=== PATIENT | female | born 1970 | race African-American/Black ===

== ENCOUNTER 2016-10-26 03:28 | Emergency (ER) | payer BC ==
[2016-10-26 05:20] VITALS: BP 134/80; PULSE 82; TEMP 98.7; BMI 26.9
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
== END 2016-10-26 06:23 | disposition home or self-care (01) ==
LOC: JER 03:28
DX: R51 Headache (principal); F31.9 Bipolar disorder, unspecified; K21.9 Gastro-esophageal reflux disease without esophagitis; J45.909 Unspecified asthma, uncomplicated
CPT/HCPCS: 84703; 99282-25

== ENCOUNTER 2018-08-21 14:37 | Emergency (ER) | payer OTHER ==
[2018-08-21 14:43] VITALS: BP 123/82; PULSE 83; TEMP 98.6; BMI 33.6
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
== END 2018-08-21 15:36 | disposition home or self-care (01) ==
LOC: JERFT 14:37
DX: J06.9 Acute upper respiratory infection, unspecified (principal); J02.9 Acute pharyngitis, unspecified; J45.909 Unspecified asthma, uncomplicated; K21.9 Gastro-esophageal reflux disease without esophagitis
CPT/HCPCS: 87070; 87804; 87880; 99281-25

== ENCOUNTER 2018-08-24 13:20 | Emergency (ER) | payer OTHER ==
[2018-08-24 13:36] VITALS: BP 136/83; PULSE 84; TEMP 97.8; BMI 33.6
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
[2018-08-24] MEDS ORDERED: diazePAM 5 MG TABLET PO ONE (14:08)
[2018-08-24] MEDS ORDERED: KETOROLAC TROMETHAMINE 30 MG/1 ML VIAL IM ONE (14:08)
[2018-08-24] MEDS ORDERED: KETOROLAC TROMETHAMINE 30 MG/1 ML VIAL ONE (14:10)
[2018-08-24] MEDS ORDERED: diazePAM 5 MG TABLET ONE (14:11)
== END 2018-08-24 15:11 | disposition home or self-care (01) ==
LOC: JERFT 13:20
PROC: 3E0233Z Introduction of Anti-inflammatory into Muscle, Percutaneous Approach (ICD-10-PCS; principal; 2018-08-24)
DX: M54.31 Sciatica, right side (principal); F17.210 Nicotine dependence, cigarettes, uncomplicated; F32.9 Major depressive disorder, single episode, unspecified; J45.909 Unspecified asthma, uncomplicated
CPT/HCPCS: 99281-25

== ENCOUNTER 2018-12-28 20:20 | Inpatient (IN) | payer OTHER ==
--- NOTE | 2018-12-28 20:34 | PDOC ---
Rapid Medical Evaluation Time Seen by Provider: 12/28/18 20:33 Medical Evaluation: Allergies Allergy/AdvReac Type Severity Reaction Status Date / Time metronidazole [From Flagyl] Allergy Mild Hives Verified 08/24/18 13:33 Metronidazole HCl Allergy Mild Hives Verified 08/24/18 13:33 [From Flagyl] latex Allergy Verified 08/24/18 13:33 Sulfa (Sulfonamide Allergy Rash, Verified 08/24/18 13:33 Antibiotics) ITCHY MOUTH 12/28/18 20:33 HPI: vomiting x4 today yellow in color PE: No acute distress ORDERS: Belly labs
--- NOTE | 2018-12-28 21:40 | PDOC ---
History of Present Illness - General Chief Complaint: Pain Stated Complaint: STOMACE PAIN Time Seen by Provider: 12/28/18 20:33 - History of Present Illness Initial Comments: 12/29/18 00:25 The patient is a 48 year old female with a history of Crohn's, GERD, UTIs, Anemia who presents for evaluation of abdominal pain, nausea, and vomiting. The patient reports a 1 day history of diffuse crampy abdominal pain with associated nausea and 6 episodes of non-bilious, non-bloody vomiting prompting her presentation to the ED for further evaluation. She notes frequent belching , but otherwise denies fevers, chills, SOB, chest pain, or changes with urination or bowel movements. She notes that her last bowel movement was 1 day ago as well. Past History - Past Medical History Allergies/Adverse Reactions: Allergies Allergy/AdvReac Type Severity Reaction Status Date / Time metronidazole [From Flagyl] Allergy Mild Hives Verified 08/24/18 13:33 Metronidazole HCl Allergy Mild Hives Verified 08/24/18 13:33 [From Flagyl] latex Allergy Verified 08/24/18 13:33 Sulfa (Sulfonamide Allergy Rash, Verified 08/24/18 13:33 Antibiotics) ITCHY MOUTH Home Medications: Ambulatory Orders Adalimumab [Humira] 40 mg SQ ASDIR 05/09/15 Omeprazole 40 mg PO DAILY 05/09/15 Mirtazapine [Remeron -] 15 mg PO DAILY 06/13/15 Albuterol Sulfate Inhaler - [Ventolin Hfa Inhaler -] 1 - 2 inh PO Q4H PRN Amoxicillin/Potassium Clav [Augmentin 875-125 Tablet] 1 each PO BID 7 Days #14 tablet 08/21/18 Benzonatate [Tessalon Pearls -] 100 mg PO TID PRN #21 capsule 08/21/18 Ipratropium [place] 2 spray NS BID PRN #1 spray 08/21/18 Cyclobenzaprine HCl [Flexeril -] 10 mg PO TID PRN #10 tablet 08/24/18 Ketorolac Tromethamine [Toradol] 10 mg PO TID PRN #10 tablet 08/24/18 Anemia: Yes Asthma: Yes Cancer: No Cardiac Disorders: No CVA: No COPD: No CHF: No Dementia: No Diabetes: No GI Disorders: Yes (ACID REFLUX, CROHNS) Disorders: Yes (H/O UTI'S) HTN: No Hypercholesterolemia: No Liver Disease: No Psychiatric Problems: Yes (depression) Seizures: No Thyroid Disease: No - Surgical History Abdominal Surgery: Yes Appendectomy: No Cardiac Surgery: No Cholecystectomy: Yes Lung Surgery: No Neurologic Surgery: No Orthopedic Surgery: Yes (R RTC, L RTC TIMES TWO) - Immunization History Immunization Up to Date: No - Suicide/Smoking/Psychosocial Hx Smoking Status: Yes Smoking History: Current every day smoker Have you smoked in the past 12 months: No Number of Cigarettes Smoked Daily: 4 Information on smoking cessation initiated: No 'Breaking Loose' booklet given: 04/18/16 Hx Alcohol Use: No Drug/Substance Use Hx: No Substance Use Type: None Hx Substance Use Treatment: Yes (1996) Review of Systems - Review of Systems Comments:: 12/29/18 00:27 Constitutional: No fevers, chills, fatigue, malaise HEENT: No Rhinorrhea, nasal congestion, visual changes Cardiovascular: No chest pain, syncope, palpitations, lightheadedness Respiratory: No Cough, SOB, Hemoptysis, Gastrointestinal: Abdominal pain, Nausea, Vomiting, No Constipation, Diarrhea, Melena Genitourinary: No Dysuria, Frequency, Urgency, Hesitancy, Hematuria, Flank pain Musculoskeletal: No Myalgia, arthralgia Skin: No rashes, itching, bruising, pallor Neurologic: No Headache, Dizziness, Numbness, Weakness, or Tingling Psychiatric: No Hallucinations. No SI or HI *Physical Exam - Vital Signs Last Vital Signs Temp Pulse Resp BP Pulse Ox 98.9 F 97 H 18 159/103 H 99 12/28/18 20:39 12/28/18 20:39 12/28/18 20:39 12/28/18 20:39 12/28/18 20:39 - Physical Exam Comments: 12/29/18 00:27 General Appearance: Nourished. No Apparent Distress HEENT: No Pharyngeal Erythema, Tonsillar Exudate, Tonsillar Erythema Neck: No Cervical Lymphadenopathy Respiratory/Chest: Lungs Clear, Normal Breath Sounds. No Crackles, Rales, Rhonchi, Wheezing Cardiovascular: Regular Rhythm, Regular Rate. No Murmur, Gallops, Rubs Gastrointestinal/Abdominal: Normal Bowel Sounds, Soft. Diffuse discomfort with palpation on exam. No Guarding, Rebound, Musculoskeletal: No CVA Tenderness Extremity: Normal Capillary Refill Integumentary: Normal Color, Dry, Warm Neurologic: Fully Oriented, Alert, Normal Mood/Affect, Normal Response, ED Treatment Course - LABORATORY CBC & Chemistry Diagram: 12/28/18 21:25 12/28/18 21:25 Medical Decision Making - Medical Decision Making 12/29/18 00:28 The patient is a 48 year old female with a history of Crohn's, GERD, UTIs, Anemia who presents for evaluation of abdominal pain, nausea, and vomiting. Differential includes but is not limited to: Gastritis, Crohn's flair, Infectious, Metabolic Derangement. Given the patient's history and physical exam , we will obtain a cbc, cmp, troponin, lipase, ua, ekg, CT abdomen/pelvis to evaluate further. We will treat with iv fluids pepcid, zofran and morphine and continue to monitor and reassess while here in the ED. 12/29/18 04:32 CBC demonstrates an elevated wbc to 13. CMP, troponin, lipase, ua are unremarkable. CT abdomen/pelvis demonstrates an acute crohn's flare with possible partial or early SBO as preliminarily read by our funeral location manager radiologist. We have placed an NG tube for management. The patient will require admission for further management. We discussed the case with Dr. Clay who accepted the patient for admission. *DC/Admit/Observation/Transfer Diagnosis at time of Disposition: SBO (small bowel obstruction) Crohn's colitis Qualifiers: Digestive disease complication type: unspecified complication Qualified Code(s) : K50.119 - Crohn's disease of large intestine with unspecified complications - Discharge Dispostion Condition at time of disposition: Stable Decision to Admit order: Yes - Referrals - Patient Instructions - Post Discharge Activity
[2018-12-28 21:44] LABS: HEMOGLOBIN 14.1 GM/dL (10.7-15.3); RBC 4.45 M/mm3 (3.60-5.2); WHITE BLOOD COUNT 13.9 K/mm3 (4.0-10.0)
[2018-12-28 21:45] LABS: BASO % 1.1 % (0-2.0); EOS % 1.9 % (0-4.5); LYMPH % 22.4 % (8-40); MCH 31.6 pg (25.7-33.7); MCHC 33.5 g/dl (32.0-36.0); MEAN CELL VOLUME 94.3 fl (80-96); MEAN PLT VOLUME 7.8 fl (7.5-11.1); MONO % 8.3 % (3.8-10.2); NEUT % 66.3 % (42.8-82.8); PLATELET COUNT 413 K/MM3 (134-434); RDW 14.1 % (11.6-15.6)
[2018-12-28] MEDS ORDERED: FAMOTIDINE 20 MG/50 ML IVPB 20 MG/50 ML MG IVPB ONE ×2 (21:48→22:14)
[2018-12-28] MEDS ORDERED: ONDANSETRON 4 MG/2 ML VIAL IVPUSH ONE (21:48)
[2018-12-28] MEDS ORDERED: SODIUM CHLORIDE 1,000 ML IV STA (21:48)
[2018-12-28] MEDS ORDERED: ONDANSETRON 4 MG/2 ML VIAL ONE (21:51)
[2018-12-28 22:11] LABS: ALBUMIN 3.6 g/dl (3.4-5.0); ALK PHOS 116 U/L (45-117); ANION GAP 6 MMOL/L (8-16); BILIRUBIN,TOTAL 0.3 mg/dL (0.2-1); BLOOD UREA NITROGEN 5 mg/dL (7-18); CHLORIDE 106 mmol/L (98-107); CO2 27 mmol/L (21-32); CREATININE 0.6 mg/dL (0.55-1.3); GLUCOSE,RANDOM 95 mg/dL (74-106); LIPASE 69 U/L (73-393); POTASSIUM 3.9 mmol/L (3.5-5.1); SGOT/AST 18 U/L (15-37); SGPT/ALT 28 U/L (13-61); SODIUM 138 mmol/L (136-145); TOT PROT 7.4 g/dl (6.4-8.2)
[2018-12-28 22:25] LABS: URINE APPEARANCE CLEAR; URINE BILIRUBIN NEGATIVE (NEGATIVE); URINE COLOR YELLOW; URINE GLUCOSE (UA) NEGATIVE (NEGATIVE); URINE KETONE NEGATIVE (NEGATIVE); URINE LEUK ESTERASE NEGATIVE (NEGATIVE); URINE NITRITE NEGATIVE (NEGATIVE); URINE PROTEIN NEGATIVE (NEGATIVE); URINE UROBILINOGEN 0.2 mg/dL (0.2-1.0)
--- NOTE | 2018-12-28 22:59 | PDOC ---
Documentation entered by Rolando Estrada SCRIBE, acting as scribe for Mariama Catalan DO. Mariama Catalan DO: This documentation has been prepared by the Sean singh Matthew, SCRIBE, under my direction and personally reviewed by me in its entirety. I confirm that the documentation accurately reflects all work, treatment, procedures, and medical decision making performed by me. Attending Attestation - Resident Resident Name: Franklyn Britt (Dr. Esparza) - ED Attending Attestation I have performed the following: I have examined & evaluated the patient, The case was reviewed & discussed with the resident, I agree w/resident's findings & plan - HPI HPI: 12/28/18 22:29 Patient is a 48 year old female with a significant past medical history of anemia, asthma, Crohn's disease, GERD, bipolar disorder, and depression who presents to the ED with complaints of epigastric pain that began yesterday. Patient reports experiencing sudden gradual increase of epigastric abdominal that she states began shortly after eating [place] food. She report waking up this morning with slight nausea, with associated vomiting x6 episodes and increased belching, prompting her to come into the ED for further evaluation. Denies chest pain, Sob. Denies nausea, vomiting. Denies fevers, chills. Denies constipation, diarrhea. Denies dysuria, hematuria. Denies contact with sick individuals, out of state travelling. Denies any other symptoms. Allergies: metronidazole, Metronidazole HCl ,latex, Sulfa Social history: No smoking. No alcohol. No illicit drugs. Surgical history: Cholecystectomy, R RTC, L RTC TIMES TWO PMD: Dr. Mandujano - Physicial Exam PE: 12/28/18 22:29 Agree with residents Physical Exam. - Medical Decision Making 12/28/18 22:57 48-year-old female with a history of Crohn's disease complaining of diffuse abdominal pain and vomiting Everybody repeat there is a leukocytosis and persistent vomiting despite anti- medics and antacids Plan for continued IV hydration CT scan of the abdomen and pelvis Patient will likely require admission as she is not tolerating by mouth
[2018-12-28] MEDS ORDERED: morphine CARPU-JECT 4 MG/1 ML DISP.SYRIN IVPUSH ONE (23:47)
[2018-12-29] MEDS ORDERED: SODIUM CHLORIDE 1,000 ML IV STA (04:26)
[2018-12-29] MEDS ORDERED: morphine CARPU-JECT 2 MG/1 ML DISP.SYRIN IVPUSH ONE (05:54)
[2018-12-29] MEDS ORDERED: ONDANSETRON 4 MG/2 ML VIAL IVPUSH PRN (09:34)
[2018-12-29] MEDS ORDERED: DEXTROSE 5%-0.45% SALINE 1,000 ML IV SCH (09:45)
[2018-12-29] MEDS: DEXTROSE 5%-0.45% SALINE 1,000 ML IV SCH (10:38)
[2018-12-29] MEDS: HEPARIN NA (PORCINE) 5,000 UNITS/ML 1ML VIAL SQ SCH ×2 (10:39→22:38)
--- NOTE | 2018-12-29 17:16 | EKG ---
Test Reason : Blood Pressure : / mmHG Vent. Rate : 095 BPM Atrial Rate : 095 BPM P-R Int : 168 ms QRS Dur : 082 ms QT Int : 366 ms P-R-T Axes : 046 060 048 degrees QTc Int : 459 ms POOR DATA QUALITY, INTERPRETATION MAY BE ADVERSELY AFFECTED NORMAL SINUS RHYTHM NORMAL ECG WHEN COMPARED WITH ECG OF 23-OCT-2015 17:40, NONSPECIFIC T WAVE ABNORMALITY NOW EVIDENT IN LATERAL LEADS Confirmed by JUSTINE MONTOYA, KING ([id number]) on 12/29/2018 5:16:30 PM Referred By: Confirmed By:KING FLETCHER MD
--- NOTE | 2018-12-29 19:24 | CONSULT ---
Consult Consult Specialty:: Surgery Reason for Consultation:: SBO, Crohn's disease - History of Present Illness Chief Complaint: abdominal pain History of Present Illness: Patient is a 48 year old female with a significant past medical history of anemia, asthma, Crohn's disease, GERD, bipolar disorder, and depression who presents to the ED with complaints of epigastric pain that began yesterday. Patient reports experiencing sudden gradual increase of epigastric abdominal that she states began shortly after eating [place]oh[place] food. She report waking up this morning with slight nausea, with associated vomiting x6 episodes and increased belching, prompting her to come into the ED for further evaluation. - Past Medical History ...LMP: 07/18/12 - Alcohol/Substance Use Hx Alcohol Use: No - Smoking History Smoking history: Current every day smoker Have you smoked in the past 12 months: No Aproximately how many cigarettes per day: 4 Home Medications - Allergies Allergies/Adverse Reactions: Allergies Allergy/AdvReac Type Severity Reaction Status Date / Time metronidazole [From Flagyl] Allergy Mild Hives Verified 08/24/18 13:33 Metronidazole HCl Allergy Mild Hives Verified 08/24/18 13:33 [From Flagyl] latex Allergy Verified 08/24/18 13:33 Sulfa (Sulfonamide Allergy Rash, Verified 08/24/18 13:33 Antibiotics) ITCHY MOUTH - Home Medications Home Medications: Ambulatory Orders Adalimumab [Humira] 40 mg SQ ASDIR 05/09/15 Omeprazole 40 mg PO DAILY 05/09/15 Mirtazapine [Remeron -] 15 mg PO DAILY 06/13/15 Albuterol Sulfate Inhaler - [Ventolin Hfa Inhaler -] 1 - 2 inh PO Q4H PRN Amoxicillin/Potassium Clav [Augmentin 875-125 Tablet] 1 each PO BID 7 Days #14 tablet 08/21/18 Benzonatate [Tessalon Pearls -] 100 mg PO TID PRN #21 capsule 08/21/18 Ipratropium [place] 2 spray NS BID PRN #1 spray 08/21/18 Cyclobenzaprine HCl [Flexeril -] 10 mg PO TID PRN #10 tablet 08/24/18 Ketorolac Tromethamine [Toradol] 10 mg PO TID PRN #10 tablet 08/24/18 Physical Exam Vital Signs: Vital Signs Temperature 99.9 F H 12/29/18 18:43 Pulse Rate 85 12/29/18 18:43 Respiratory Rate 20 12/29/18 18:43 Blood Pressure 135/80 12/29/18 18:43 O2 Sat by Pulse Oximetry (%) 95 12/29/18 09:00 Labs: CBC, BMP 12/28/18 21:25 12/28/18 21:25 Imaging - Results Cat Scan: Report Reviewed, Image Reviewed Problem List - Problems (1) SBO (small bowel obstruction) Code(s): K56.609 - UNSP INTESTNL OBST, UNSP TO PARTIAL VERSUS COMPLETE OBST (2) Abdominal pain Code(s): R10.9 - UNSPECIFIED ABDOMINAL PAIN
[2018-12-29 22:25] VITALS: BMI 34.5
--- NOTE | 2018-12-29 23:08 | HP ---
Admitting History and Physical - Admission History of Present Illness: The patient is a 48 year old female with a history of Crohn's, GERD, UTIs, Anemia who presents for evaluation of abdominal pain, nausea, and vomiting. The patient reports a 1 day history of diffuse crampy abdominal pain with associated nausea and 6 episodes of non-bilious, non-bloody vomiting prompting her presentation to the ED for further evaluation. She notes frequent belching , but otherwise denies fevers, chills, SOB, chest pain, or changes with urination or bowel movements. She notes that her last bowel movement was 1 day ago as well. - Past Medical History Gastrointestinal: Yes: Crohn's Disease, GERD ...LMP: 07/18/12 Heme/Onc: Yes: Anemia - Past Surgical History Past Surgical History: Yes: None - Smoking History Smoking history: Current every day smoker Have you smoked in the past 12 months: No Aproximately how many cigarettes per day: 4 - Alcohol/Substance Use Hx Alcohol Use: No Home Medications - Allergies Allergies/Adverse Reactions: Allergies Allergy/AdvReac Type Severity Reaction Status Date / Time metronidazole [From Flagyl] Allergy Mild Hives Verified 08/24/18 13:33 Metronidazole HCl Allergy Mild Hives Verified 08/24/18 13:33 [From Flagyl] shellfish derived Allergy Unknown Unverified 12/30/18 17:03 latex Allergy Verified 08/24/18 13:33 pepper (genus Capsicum) Allergy Verified 12/30/18 17:01 Sulfa (Sulfonamide Allergy Rash, Verified 08/24/18 13:33 Antibiotics) ITCHY MOUTH - Home Medications Home Medications: Ambulatory Orders Adalimumab [Humira] 40 mg SQ ASDIR 05/09/15 Omeprazole 40 mg PO DAILY 05/09/15 Mirtazapine [Remeron -] 15 mg PO DAILY 06/13/15 Albuterol Sulfate Inhaler - [Ventolin HFA Inhaler -] 1 - 2 inh PO Q4H PRN Ipratropium [place] 2 spray NS BID PRN #1 spray 08/21/18 Cyclobenzaprine HCl [Flexeril -] 10 mg PO TID PRN #10 tablet 08/24/18 Levofloxacin [Levaquin] 500 mg PO DAILY #7 tablet 12/31/18 Family Disease History - Family Disease History Family History: Unremarkable Review of Systems - Review of Systems Constitutional: reports: Loss of Appetite, Weakness Neck: reports: No Symptoms Cardiovascular: reports: No Symptoms Respiratory: reports: No Symptoms Genitourinary: reports: No Symptoms Physical Examination Vital Signs: Vital Signs Temperature 98.6 F 12/29/18 20:30 Pulse Rate 83 12/29/18 20:30 Respiratory Rate 18 12/29/18 20:30 Blood Pressure 160/92 12/29/18 20:30 O2 Sat by Pulse Oximetry (%) 95 12/29/18 09:00 Constitutional: Yes: Well Nourished HENT: Yes: Other ((+) NGT inserted) Neck: Yes: WNL, Supple Cardiovascular: Yes: WNL, Regular Rate and Rhythm Respiratory: Yes: WNL, Regular, CTA Bilaterally Gastrointestinal: Yes: Normal Bowel Sounds, Soft, Distention Musculoskeletal: Yes: WNL Extremities: Yes: WNL Edema: No Neurological: Yes: WNL, Alert, Oriented ...Motor Strength: WNL Labs: CBC, BMP 12/28/18 21:25 12/28/18 21:25 Problem List - Problems (1) Abdominal pain Assessment/Plan: ?partial SBO vs Crohn's exacerbation NGT as per surgery GI/Surgical consults noted COnt IVF Cont IV antibxs Code(s): R10.9 - UNSPECIFIED ABDOMINAL PAIN (2) Anemia Assessment/Plan: Monitor H/H Due to chronic dz Code(s): D64.9 - ANEMIA, UNSPECIFIED
[2018-12-30 06:46] LABS: BASO % 0.6 % (0-2.0); EOS % 3.8 % (0-4.5); HEMATOCRIT 37.3 % (32.4-45.2); HEMOGLOBIN 12.3 GM/dL (10.7-15.3); MCH 31.3 pg (25.7-33.7); MEAN CELL VOLUME 94.7 fl (80-96); MONO % 9.7 % (3.8-10.2); NEUT % 54.9 % (42.8-82.8); PLATELET COUNT 422 K/MM3 (134-434); RBC 3.94 M/mm3 (3.60-5.2); RDW 14.1 % (11.6-15.6); WHITE BLOOD COUNT 12.5 K/mm3 (4.0-10.0)
[2018-12-30 07:27] LABS: BILIRUBIN,TOTAL 0.5 mg/dL (0.2-1); CALCIUM 8.3 mg/dL (8.5-10.1); CREATININE 0.6 mg/dL (0.55-1.3); POTASSIUM 3.4 mmol/L (3.5-5.1); TOT PROT 6.2 g/dl (6.4-8.2)
--- NOTE | 2018-12-30 08:08 | CON.GI ---
Consult Consult Specialty:: GI Referred by:: Dr. Ingrid Clay Reason for Consultation:: Epigastric pain with nausea and vomiting - History of Present Illness History of Present Illness: Patient is a 48 y/o female with history of Crohn's disease and GERD. Patient states experiencing sharp/cramping diffuse abdominal pain accompanied with nausea and non-bloody vomitus. Patient states the symptoms started Wednesday after eating [place] food Wednesday night. Abdominal pain was exacerbated after eating or drinking, there were no relieving factors. Abdomen/Pelvic CT scan shows findings consistent with Crohn's disease, thickening and irregularity of terminal ileum, areas of focal dilation involving ileal loops with associated inflammatory changes within adjacent mesenteric fat. NGT was placed and confirmed with xray, however on examination no NGT noted. - History Source History Provided By: Patient Limitations to Obtaining History: No Limitations - Past Medical History Pulmonary: Yes: Asthma Gastrointestinal: Yes: Crohn's Disease, GERD ...LMP: 07/18/12 Heme/Onc: Yes: Anemia - Past Surgical History Past Surgical History: Yes: Cholecystectomy, Hysterectomy - Alcohol/Substance Use Hx Alcohol Use: No - Smoking History Smoking history: Current every day smoker Have you smoked in the past 12 months: No Aproximately how many cigarettes per day: 4 - Social History ADL: Independent History of Recent Travel: No Home Medications - Allergies Allergies/Adverse Reactions: Allergies Allergy/AdvReac Type Severity Reaction Status Date / Time metronidazole [From Flagyl] Allergy Mild Hives Verified 08/24/18 13:33 Metronidazole HCl Allergy Mild Hives Verified 08/24/18 13:33 [From Flagyl] latex Allergy Verified 08/24/18 13:33 Sulfa (Sulfonamide Allergy Rash, Verified 08/24/18 13:33 Antibiotics) ITCHY MOUTH - Home Medications Home Medications: Ambulatory Orders Adalimumab [Humira] 40 mg SQ ASDIR 05/09/15 Omeprazole 40 mg PO DAILY 05/09/15 Mirtazapine [Remeron -] 15 mg PO DAILY 06/13/15 Albuterol Sulfate Inhaler - [Ventolin Hfa Inhaler -] 1 - 2 inh PO Q4H PRN Amoxicillin/Potassium Clav [Augmentin 875-125 Tablet] 1 each PO BID 7 Days #14 tablet 08/21/18 Benzonatate [Tessalon Pearls -] 100 mg PO TID PRN #21 capsule 08/21/18 Ipratropium [place] 2 spray NS BID PRN #1 spray 08/21/18 Cyclobenzaprine HCl [Flexeril -] 10 mg PO TID PRN #10 tablet 08/24/18 Ketorolac Tromethamine [Toradol] 10 mg PO TID PRN #10 tablet 08/24/18 Review of Systems - Review of Systems Constitutional: reports: No Symptoms Eyes: reports: No Symptoms HENT: reports: No Symptoms Neck: reports: No Symptoms Cardiovascular: reports: No Symptoms Respiratory: reports: No Symptoms Gastrointestinal: reports: Abdominal Pain, Constipation, Nausea, Vomiting Genitourinary: reports: No Symptoms Breasts: reports: No Symptoms Reported Musculoskeletal: reports: No Symptoms Integumentary: reports: No Symptoms Neurological: reports: No Symptoms Endocrine: reports: No Symptoms Hematology/Lymphatic: reports: No Symptoms Psychiatric: reports: No Symptoms Physical Exam-GI Vital Signs: Vital Signs Temperature 98.5 F 12/30/18 06:00 Pulse Rate 78 12/30/18 06:00 Respiratory Rate 20 12/30/18 06:00 Blood Pressure 106/55 L 12/30/18 06:00 O2 Sat by Pulse Oximetry (%) 98 12/29/18 21:00 Constitutional: Yes: Well Nourished, No Distress, Calm Eyes: Yes: Conjunctiva Clear HENT: Yes: Atraumatic Cardiovascular: Yes: Regular Rate and Rhythm Respiratory: Yes: Regular, CTA Bilaterally Gastrointestinal Inspection: Yes: WNL. No: Ascites, Distention, Hernia, Scars, Other ...Auscultate: Yes: Normoactive Bowel Sounds. No: Hyperactive Bowel Sounds, Hypoactive Bowel Sounds, No Bowel Sounds, Other ...Palpate: Yes: Soft, Tenderness (mild, diffuse). No: Firm/Rigid, Guarding, Hepatomegaly, Mass, Pulsatile Mass, Splenomegaly, Tenderness, Epigastium, Tenderness, Rebound, Other ...Percussion: Yes: Tympanitic. No: Dullness, Fluid Wave, Other Neurological: Yes: Alert, Oriented Psychiatric: Yes: Alert, Oriented Labs: CBC, BMP 12/30/18 05:30 12/30/18 05:30 Active Medications Generic Name Dose Route Start Last Admin Trade Name Freq PRN Reason Stop Dose Admin Heparin Sodium (Porcine) 5,000 unit 12/29/18 10:00 12/29/18 22:38 Heparin - SQ 5,000 unit BID DARRION Administration Dextrose/Sodium Chloride 1,000 mls @ 75 mls/hr 12/29/18 09:45 12/29/18 10:38 D5-1/2ns - IV 75 mls/hr ASDIR DARRION Administration Levofloxacin 500 mg in 100 mls @ 100 mls/hr 12/29/18 10:00 12/29/18 10:38 Levaquin 500 Mg Premixed Ivpb - IVPB 100 mls/hr DAILY DARRION Administration Protocol Ondansetron HCl 4 mg 12/29/18 09:34 Zofran Injection IVPUSH Q6H PRN NAUSEA AND/OR VOMITING Imaging - Results Cat Scan: Report Reviewed Problem List - Problems (1) Crohn's colitis Assessment/Plan: R> continue Yumiko patient instructed to follow up as outpatient Code(s): K50.10 - CROHN'S DISEASE OF LARGE INTESTINE WITHOUT COMPLICATIONS Qualifiers: Digestive disease complication type: unspecified complication Qualified Code(s): K50.119 - Crohn's disease of large intestine with unspecified complications (2) Nausea and vomiting Assessment/Plan: etiology unclear viral vs Crohn's disease R> IV hydration Reglan 5mg TIDAC Code(s): R11.2 - NAUSEA WITH VOMITING, UNSPECIFIED (3) Abdominal pain Assessment/Plan: R/O food poisoning vs mesenteric ischemia R>IV hydration Protonix PO BID advance diet to low fiber, lactose free Code(s): R10.9 - UNSPECIFIED ABDOMINAL PAIN
[2018-12-30] MEDS: DEXTROSE 5%-0.45% SALINE 1,000 ML IV SCH ×2 (09:20→23:17)
[2018-12-30] MEDS: HEPARIN NA (PORCINE) 5,000 UNITS/ML 1ML VIAL SQ SCH ×2 (09:21→21:45)
[2018-12-30] MEDS: METOCLOPRAMIDE HCL 10 MG TABLET (FP) PO SCH ×2 (11:51→15:38)
--- NOTE | 2018-12-30 12:44 | PN ---
Progress Note, Physician History of Present Illness: Patient has less abdominal pain. Tolerating liquids + flatus - Current Medication List Current Medications: Active Medications Heparin Sodium (Porcine) (Heparin -) 5,000 unit SQ BID [facility] Last Admin: 12/30/18 09:21 Dose: 5,000 unit Dextrose/Sodium Chloride (D5-1/2ns -) 1,000 mls @ 75 mls/hr IV ASDIR [facility] Last Admin: 12/30/18 09:20 Dose: 75 mls/hr Levofloxacin (Levaquin 500 Mg Premixed Ivpb -) 500 mg in 100 mls @ 100 mls/hr IVPB DAILY [facility]; Protocol Last Admin: 12/30/18 09:21 Dose: 100 mls/hr Metoclopramide HCl (Reglan -) 5 mg PO TIDAC [facility] Last Admin: 12/30/18 11:51 Dose: 5 mg Ondansetron HCl (Zofran Injection) 4 mg IVPUSH Q6H PRN PRN Reason: NAUSEA AND/OR VOMITING Pantoprazole Sodium (Protonix -) 40 mg PO BID [facility] - Objective Vital Signs: Vital Signs Temperature 98.1 F 12/30/18 09:53 Pulse Rate 69 12/30/18 09:53 Respiratory Rate 20 12/30/18 09:53 Blood Pressure 116/57 L 12/30/18 09:53 O2 Sat by Pulse Oximetry (%) 95 12/30/18 09:00 Gastrointestinal: Yes: Soft, Tenderness (minimal) Labs: CBC, BMP 12/30/18 05:30 12/30/18 05:30 Problem List - Problems (1) SBO (small bowel obstruction) Code(s): K56.609 - UNSP INTESTNL OBST, UNSP TO PARTIAL VERSUS COMPLETE OBST (2) Abdominal pain Assessment/Plan: Crohns's disease No surgical intervention necessary advance SCOTT continue meds for Crohn's reconsult prn Code(s): R10.9 - UNSPECIFIED ABDOMINAL PAIN
[2018-12-30] MEDS ORDERED: POTASSIUM CHLORIDE TABS 20 MEQ TABLET.ER (FP) PO ONE (18:45)
[2018-12-30] MEDS: PANTOPRAZOLE 40 MG TABLET (FP) PO SCH (21:45)
--- NOTE | 2018-12-30 23:34 | PN ---
Progress Note, Physician History of Present Illness: No new complaints - Current Medication List Current Medications: Active Medications Heparin Sodium (Porcine) (Heparin -) 5,000 unit SQ BID [facility] Last Admin: 12/30/18 21:45 Dose: 5,000 unit Dextrose/Sodium Chloride (D5-1/2ns -) 1,000 mls @ 75 mls/hr IV ASDIR [facility] Last Admin: 12/30/18 23:17 Dose: 75 mls/hr Levofloxacin (Levaquin 500 Mg Premixed Ivpb -) 500 mg in 100 mls @ 100 mls/hr IVPB DAILY [facility]; Protocol Last Admin: 12/30/18 09:21 Dose: 100 mls/hr Metoclopramide HCl (Reglan -) 5 mg PO TIDAC [facility] Last Admin: 12/30/18 15:38 Dose: 5 mg Ondansetron HCl (Zofran Injection) 4 mg IVPUSH Q6H PRN PRN Reason: NAUSEA AND/OR VOMITING Pantoprazole Sodium (Protonix -) 40 mg PO BID [facility] Last Admin: 12/30/18 21:45 Dose: 40 mg - Objective Vital Signs: Vital Signs Temperature 99.3 F 12/30/18 22:00 Pulse Rate 73 12/30/18 22:00 Respiratory Rate 18 12/30/18 22:00 Blood Pressure 152/73 12/30/18 22:00 O2 Sat by Pulse Oximetry (%) 99 12/30/18 21:00 Cardiovascular: Yes: WNL, Regular Rate and Rhythm Respiratory: Yes: WNL, Regular, CTA Bilaterally Gastrointestinal: Yes: WNL, Normal Bowel Sounds, Soft Labs: CBC, BMP 12/30/18 05:30 12/30/18 05:30 Problem List - Problems (1) Abdominal pain Assessment/Plan: ?partial SBO vs Crohn's exacerbation NGT removed Pt tolerating diet ?Probable dc planning for am Cont IVF COnt IV antibxs Code(s): R10.9 - UNSPECIFIED ABDOMINAL PAIN (2) Anemia Assessment/Plan: Monitor H/H Due to chronic dz Code(s): D64.9 - ANEMIA, UNSPECIFIED
[2018-12-30] MEDS ORDERED: PATIENT'S OWN MEDICATION (NON-FORMULARY) (Adalimumab [Humira] 40 MG) SQ SCH (23:45)
[2018-12-31] MEDS: METOCLOPRAMIDE HCL 10 MG TABLET (FP) PO SCH ×2 (06:13→10:11)
[2018-12-31 08:17] LABS: BASO % 0.3 % (0-2.0); EOS % 4.5 % (0-4.5); HEMATOCRIT 36.9 % (32.4-45.2); HEMOGLOBIN 12.4 GM/dL (10.7-15.3); LYMPH % 29.8 % (8-40); MCHC 33.7 g/dl (32.0-36.0); MEAN CELL VOLUME 94.8 fl (80-96); MONO % 9.5 % (3.8-10.2); NEUT % 55.9 % (42.8-82.8); PLATELET COUNT 411 K/MM3 (134-434); RBC 3.89 M/mm3 (3.60-5.2); RDW 13.9 % (11.6-15.6); WHITE BLOOD COUNT 13.2 K/mm3 (4.0-10.0)
[2018-12-31 08:51] LABS: BILIRUBIN,TOTAL 0.4 mg/dL (0.2-1); CALCIUM 8.4 mg/dL (8.5-10.1); CREATININE 0.6 mg/dL (0.55-1.3); POTASSIUM 3.8 mmol/L (3.5-5.1); TOT PROT 6.1 g/dl (6.4-8.2)
[2018-12-31] MEDS: HEPARIN NA (PORCINE) 5,000 UNITS/ML 1ML VIAL SQ SCH (09:02)
[2018-12-31] MEDS: PANTOPRAZOLE 40 MG TABLET (FP) PO SCH (09:02)
[2018-12-31] MEDS ORDERED: PT OWN MED DRAWER 7, Y5N ONE (09:21)
[2018-12-31] MEDS: DEXTROSE 5%-0.45% SALINE 1,000 ML IV SCH (10:16)
[2018-12-31 15:23] VITALS: BP 114/57; PULSE 77; TEMP 98.3
--- NOTE | 2019-01-03 14:54 | DS ---
DATE OF ADMISSION: 12/29/2018 DATE OF DISCHARGE: 12/31/2018 HISTORY OF HOSPITAL COURSE: Patient is a 48-year-old female with a past medical history significant for Crohn disease, anemia, asthma, GERD, bipolar disorder. Patient initially presented to the hospital because of epigastric pain x1 day that began after eating [place] food. Patient had 6 episodes of vomiting and came to the ER. In the ER, the patient was found to have an elevated white blood cell count of 13.9. A CT scan of the abdomen and pelvis showed findings consistent with Crohn disease. Focal dilatation involving the ileal loops with associated inflammatory changes within the mesenteric fat. Patient was initially thought to have a small bowel obstruction. An NG tube was placed; however, the patient was seen by GI and Surgery. The NG tube was taken out. Patient was given IV fluids, IV antibiotics. Patient's diet was advanced. The patient tolerated her diet and was discharged home in stable condition. PRINCIPAL DISCHARGE DIAGNOSIS: Crohn's exacerbation. SECONDARY DIAGNOSES: 1. Anemia. 2. Gastroesophageal reflux disease. 3. Bipolar disorder. Ingrid Clay MD [id number]
== END 2018-12-31 15:01 | disposition home or self-care (01) | DRG 245 ==
LOC: JER 20:20 → JERBED 12-29 04:35 → J8W 12-29 22:02
PROVIDERS: ADMIT Internal Medicine; ATTEND Internal Medicine
DX: K50.119 Crohn's disease of large intestine with unspecified complications (principal); K21.9 Gastro-esophageal reflux disease without esophagitis; F32.9 Major depressive disorder, single episode, unspecified; D64.9 Anemia, unspecified; J45.909 Unspecified asthma, uncomplicated; F17.210 Nicotine dependence, cigarettes, uncomplicated; R10.9 Unspecified abdominal pain; R11.2 Nausea with vomiting, unspecified
CPT/HCPCS: 36415; 71045-TC-FY; 74177-TC; 80053; 81003; 82550; 82553; 83690; 84484; 85025; 87086; 90853; 93005; 93010; 99285-25; J1644; J7030

== ENCOUNTER 2019-06-02 14:57 | Inpatient (IN) | payer OTHER ==
[2019-06-02] MEDS ORDERED: ONDANSETRON 4 MG/2 ML VIAL IVPUSH ONE ×2 (15:08→20:28)
[2019-06-02] MEDS ORDERED: KETOROLAC TROMETHAMINE 30 MG/1 ML VIAL IVPUSH ONE (15:08)
[2019-06-02] MEDS ORDERED: PANTOPRAZOLE SODIUM 40 MG in SODIUM CHLORIDE 100 ML IVPB ONE (15:08)
[2019-06-02] MEDS ORDERED: SODIUM CHLORIDE 1,000 ML IV STA (15:08)
--- NOTE | 2019-06-02 15:09 | PDOC ---
Rapid Medical Evaluation Time Seen by Provider: 06/02/19 15:07 Medical Evaluation: Allergies Allergy/AdvReac Type Severity Reaction Status Date / Time metronidazole [From Flagyl] Allergy Mild Hives Verified 06/02/19 15:06 Metronidazole HCl Allergy Mild Hives Verified 06/02/19 15:06 [From Flagyl] shellfish derived Allergy Unknown Verified 06/02/19 15:06 latex Allergy Verified 06/02/19 15:06 pepper (genus Capsicum) Allergy Verified 06/02/19 15:06 Sulfa (Sulfonamide Allergy Rash, Verified 06/02/19 15:06 Antibiotics) ITCHY MOUTH 06/02/19 15:08 Pt c/o: upper abd pain with vomiting and diarrhea, denies fever or bloody stool Pt on brief exam:epigastric tenderness, vss Pt ordered for: labs, urine, and meds Pt to proceed to the ED Discharge Disposition - Diagnosis SBO (small bowel obstruction) - Discharge Dispostion Disposition: HOME Condition at time of disposition: Good - Referrals - Patient Instructions - Post Discharge Activity
[2019-06-02 15:10] VITALS: BMI 32.8
[2019-06-02] MEDS ORDERED: FAMOTIDINE 20 MG/50 ML IVPB 20 MG/50 ML MG IVPB ONE ×2 (15:31→17:27)
[2019-06-02] MEDS ORDERED: ACETAMINOPHEN 1000 MG/100 ML VIAL (NON FORMULARY) IVPB ONE (15:56)
--- NOTE | 2019-06-02 16:43 | PDOC ---
History of Present Illness - General Chief Complaint: Pain Stated Complaint: VIRUS Time Seen by Provider: 06/02/19 15:07 History Source: Patient Exam Limitations: No Limitations - History of Present Illness Initial Comments: 06/02/19 16:37 49 yo F w/ a h/o Chron's disease, on Humira, comes in c/o 1 week of "not feeling well", with generalized malaise, hot flashes. She says that 2 days ago she started having multiple episodes of NBNB vomiting and NB diarrhea which got worse yesterday. She went to [facility] and is not happy with the care there , says that they did not do anything, told her she had a virus and discharged her. No other complaints today, no fever/chills, no urinary symptoms. Pt says that it vallejo snot feel like a flare. She is not menopausal yet, says that she had a partial hysterectomy but has not been told that she was menopausal. Past History - Past Medical History Allergies/Adverse Reactions: Allergies Allergy/AdvReac Type Severity Reaction Status Date / Time metronidazole [From Flagyl] Allergy Mild Hives Verified 06/02/19 15:06 Metronidazole HCl Allergy Mild Hives Verified 06/02/19 15:06 [From Flagyl] shellfish derived Allergy Unknown Verified 06/02/19 15:06 latex Allergy Verified 06/02/19 15:06 pepper (genus Capsicum) Allergy Verified 06/02/19 15:06 Sulfa (Sulfonamide Allergy Rash, Verified 06/02/19 15:06 Antibiotics) ITCHY MOUTH Home Medications: Ambulatory Orders Adalimumab [Humira] 40 mg SQ ASDIR 05/09/15 Omeprazole 40 mg PO DAILY 05/09/15 Mirtazapine [Remeron -] 15 mg PO DAILY 06/13/15 Albuterol Sulfate Inhaler - [Ventolin HFA Inhaler -] 1 - 2 inh PO Q4H PRN Ipratropium [place] 2 spray NS BID PRN #1 spray 08/21/18 Cyclobenzaprine HCl [Flexeril -] 10 mg PO TID PRN #10 tablet 08/24/18 Levofloxacin [Levaquin] 500 mg PO DAILY #7 tablet 12/31/18 Anemia: Yes Asthma: Yes Cancer: No Cardiac Disorders: No CVA: No COPD: No CHF: No Dementia: No Diabetes: No GI Disorders: Yes (ACID REFLUX, CROHNS) Disorders: Yes (H/O UTI'S) HTN: No Hypercholesterolemia: No Liver Disease: No Psychiatric Problems: Yes (depression) Seizures: No Thyroid Disease: No - Surgical History Abdominal Surgery: Yes Appendectomy: No Cardiac Surgery: No Cholecystectomy: Yes Lung Surgery: No Neurologic Surgery: No Orthopedic Surgery: Yes (R RTC, L RTC TIMES TWO) - Immunization History Immunization Up to Date: No - Psycho Social/Smoking Cessation Hx Smoking Status: Yes Smoking History: Current every day smoker Have you smoked in the past 12 months: No Number of Cigarettes Smoked Daily: 10 Information on smoking cessation initiated: No 'Breaking Loose' booklet given: 04/18/16 Hx Alcohol Use: No Drug/Substance Use Hx: Yes (MARIJUANA) Substance Use Type: None Hx Substance Use Treatment: Yes (1996) Review of Systems - Review of Systems Able to Perform ROS?: Yes Constitutional: Yes: Malaise. No: Chills, Fever, Night Sweats HEENTM: No: Eye Pain, Recent change in vision, Throat Pain Respiratory: No: Cough, Shortness of Breath Cardiac (ROS): No: Chest Pain, Palpitations, Chest Tightness ABD/GI: Yes: Diarrhea, Nausea, Vomiting, Abdominal cramping : No: Dysuria, Hematuria Musculoskeletal: No: Back Pain Integumentary: No: Rash Neurological: No: Headache, Numbness, Dizziness Psychiatric: Yes: Change in Appetite Endocrine: No: Unexplained Weight Loss *Physical Exam - Vital Signs Last Vital Signs Temp Pulse Resp BP Pulse Ox 98.2 F 83 17 156/95 99 06/02/19 15:06 06/02/19 15:06 06/02/19 15:06 06/02/19 15:06 06/02/19 15:06 - Physical Exam General Appearance: Yes: Nourished. No: Apparent Distress HEENT: positive: CARMELITA, Normal ENT Inspection, Normal Voice. negative: Pale Conjunctivae, Scleral Icterus (R), Scleral Icterus (L) Neck: positive: Supple. negative: Decreased range of motion, Tender midline Respiratory/Chest: positive: Lungs Clear, Normal Breath Sounds. negative: Respiratory Distress, Accessory Muscle Use Cardiovascular: positive: Regular Rhythm, Regular Rate Gastrointestinal/Abdominal: positive: Normal Bowel Sounds, Tender (epigastric and LLQ areas. No RLQ tenderness, no tenderness at McBurney's point, (-)gray' s sign), Soft Musculoskeletal: positive: Normal Inspection. negative: CVA Tenderness, Decreased Range of Motion Extremity: positive: Normal Capillary Refill, Normal Inspection, Normal Range of Motion. negative: Tender, Pedal Edema Integumentary: positive: Normal Color, Dry. negative: Jaundice, Rash Neurologic: positive: Fully Oriented, Alert, Normal Mood/Affect ED Treatment Course - RADIOLOGY Radiology Studies Ordered: Category Date Time Status ABDOMEN & PELVIS CT WITH CONTR [CT] Stat CT Scan 06/02/19 16:36 Ordered Medical Decision Making - Medical Decision Making 06/02/19 16:42 49 yo F w/ Crohn's disease p/w abdominal pain, NVD. Will line and lab, give pepcid, zofran, protonix, tylenol IV, IV fluids and reassess Change of shift, care of patient signed over to LENCHO Mack who will continue treatment, follow up labs/imaging and decide on dispo plan Discharge - Discharge Information Problems reviewed: Yes Clinical Impression/Diagnosis: Abdominal pain Qualifiers: Abdominal location: epigastric Qualified Code(s): R10.13 - Epigastric pain - Follow up/Referral - Patient Discharge Instructions - Post Discharge Activity
[2019-06-02] MEDS ORDERED: ONDANSETRON 4 MG/2 ML VIAL ONE (17:26)
[2019-06-02] MEDS ORDERED: PANTOPRAZOLE SODIUM 40 MG/100 ML BAG IVPB ONE (17:26)
[2019-06-02 17:33] LABS: BASO % 1.5 % (0-2.0); EOS % 1.2 % (0-4.5); HEMATOCRIT 46.1 % (32.4-45.2); HEMOGLOBIN 15.4 GM/dL (10.7-15.3); LYMPH % 18.2 % (8-40); MCH 31.7 pg (25.7-33.7); MCHC 33.4 g/dl (32.0-36.0); MEAN CELL VOLUME 94.7 fl (80-96); MEAN PLT VOLUME 8.5 fl (7.5-11.1); MONO % 6.2 % (3.8-10.2); NEUT % 72.9 % (42.8-82.8); PLATELET COUNT 480 K/MM3 (134-434); RBC 4.87 M/mm3 (3.60-5.2); RDW 14.5 % (11.6-15.6); WHITE BLOOD COUNT 14.6 K/mm3 (4.0-10.0)
[2019-06-02 18:00] LABS: MAGNESIUM 2.5 mg/dL (1.8-2.4)
[2019-06-02 18:06] LABS: ALBUMIN 4.3 g/dl (3.4-5.0); BILIRUBIN,TOTAL 0.5 mg/dL (0.2-1); BLOOD UREA NITROGEN 6.7 mg/dL (7-18); CALCIUM 9.6 mg/dL (8.5-10.1); CREATININE 0.8 mg/dL (0.55-1.3); POTASSIUM 3.9 mmol/L (3.5-5.1); TOT PROT 8.5 g/dl (6.4-8.2)
[2019-06-02] MEDS ORDERED: morphine CARPU-JECT 2 MG/1 ML DISP.SYRIN IVPUSH ONE (18:07)
[2019-06-02] MEDS ORDERED: ACETAMINOPHEN INJECTION 100 ML IVPB ONE (18:08)
[2019-06-02] MEDS ORDERED: morphine CARPU-JECT 4 MG/1 ML DISP.SYRIN IVPUSH ONE (20:58)
--- NOTE | 2019-06-02 20:58 | PDOC ---
*Physical Exam - Vital Signs Last Vital Signs Temp Pulse Resp BP Pulse Ox 98.2 F 83 17 156/95 99 06/02/19 15:06 06/02/19 15:06 06/02/19 15:06 06/02/19 15:06 06/02/19 15:06 ED Treatment Course - LABORATORY CBC & Chemistry Diagram: 06/07/19 06:30 06/07/19 06:30 - ADDITIONAL ORDERS Additional order review: Laboratory Results 06/02/19 06/02/19 06/02/19 17:10 17:10 17:10 Sodium 137 Potassium 3.9 Chloride 105 Carbon Dioxide 28 Anion Gap 5 L BUN 6.7 L Creatinine 0.8 Est GFR (CKD-EPI)AfAm 101.75 Est GFR (CKD-EPI)NonAf 87.79 Random Glucose 105 Calcium 9.6 Magnesium 2.5 H Total Bilirubin 0.5 AST 16 ALT 30 Alkaline Phosphatase 146 H Total Protein 8.5 H Albumin 4.3 Lipase 63 L Beta HCG, Quant < 1.0 06/02/19 17:10 RBC 4.87 MCV 94.7 MCHC 33.4 RDW 14.5 MPV 8.5 Neutrophils % 72.9 D Lymphocytes % 18.2 D Monocytes % 6.2 Eosinophils % 1.2 Basophils % 1.5 D - RADIOLOGY Radiology Studies Ordered: Category Date Time Status ABDOMEN & PELVIS CT WITH CONTR [CT] Stat CT Scan 06/02/19 16:36 Ordered - Medications Given in the ED: ED Medications Discontinued Medications Generic Name Dose Route Start Last Admin Trade Name Freq PRN Reason Stop Dose Admin Acetaminophen 1,000 mg 06/02/19 15:56 06/02/19 18:16 Ofirmev Injection - IVPB 06/02/19 15:57 1,000 mg ONCE ONE Administration Pantoprazole Sodium 40 mg/ 100 mls @ 200 mls/hr 06/02/19 15:08 06/02/19 17:54 Sodium Chloride IVPB 06/02/19 15:37 200 mls/hr ONCE ONE Administration Sodium Chloride 1,000 mls @ 1,000 mls/hr 06/02/19 15:08 06/02/19 17:40 Normal Saline - IV 06/02/19 16:07 1,000 mls/hr ASDIR STA Administration Famotidine/Sodium Chloride 20 mg in 50 mls @ 100 mls/hr 06/02/19 15:31 18:21 Pepcid 20 Mg Premixed Ivpb - IVPB 06/02/19 16:00 Not Given ONCE ONE Ketorolac Tromethamine 30 mg 06/02/19 15:08 06/02/19 18:22 Toradol Injection - IVPUSH 06/02/19 15:09 Not Given ONCE ONE Morphine Sulfate 2 mg 06/02/19 18:07 06/02/19 19:01 Morphine Injection - IVPUSH 06/02/19 18:08 Not Given ONCE ONE Ondansetron HCl 4 mg 06/02/19 15:08 06/02/19 17:41 Zofran Injection IVPUSH 06/02/19 15:09 4 mg ONCE ONE Administration Ondansetron HCl 4 mg 06/02/19 20:28 06/02/19 20:56 Zofran Injection IVPUSH 06/02/19 20:29 4 mg ONCE ONE Administration ED Progress Note - Progress Note Progress Note: 06/02/19 22:30 Received patient from OTTONIEL Chen. Briefly this a 49-year-old woman with history of Crohn's disease with SBO who has been having 2 days of inability to tolerate p.o.'s with bilious vomiting over that time. Patient has not had any bowel movements and has had increased abdominal pain. Laboratory testing and CT scan are pending. Medical Decision Making - Medical Decision Making 06/02/19 22:30 CT scan is read by Dr. Ybarra: In comparison to a CT exam of 12/29/2018 interval development of a small bowel obstruction is noted secondary to stricture formation associated with Crohn's disease involving the proximal and mid aspects of the ileum. Note is also made of development of a small 1.7 x 1.3 cm fluid focus along the antimesenteric border of the mid to distal ileum which may represent a diverticulum or probably less likely an intramural abscess. Correlation with close follow-up CT is suggested. Diffuse hepatic steatosis Status post cholecystectomy Status post hysterectomy I will contact Dr. Barth general surgery and admit patient to Dr. Clay for continued evaluation of small bowel obstruction. 06/02/19 23:12 Is been discussed with Dr. Clay who accepts for admission. Message left with Dr. barth service. I will place consult order for Dr. barth keep patient n.p.o. and place NG tube. 10/12/19 00:03 18 Malay NG tube placed into the left nare at 55 cm. Gurgling heard over the epigastrium status post placement. Chest x-ray ordered to confirm placement. Discharge - Discharge Information Problems reviewed: Yes Clinical Impression/Diagnosis: SBO (small bowel obstruction) Condition: Good Disposition: HOME - Admission Yes - Follow up/Referral - Patient Discharge Instructions - Post Discharge Activity
[2019-06-02] MEDS: LACTATED RINGERS SOLUTION 1,000 ML/1,000 ML INFUS.BAG IV SCH (23:50)
[2019-06-03] MEDS ORDERED: PIPERACILLIN/TAZOB 3.375 GM 3.375 GM/50 ML BAG IVPB ONE (08:44)
[2019-06-03 08:51] LABS: PH,URINE 5.5 (5.0-8.0); URINE APPEARANCE CLOUDY; URINE BILIRUBIN NEGATIVE (NEGATIVE); URINE COLOR YELLOW; URINE GLUCOSE (UA) NEGATIVE (NEGATIVE); URINE KETONE NEGATIVE (NEGATIVE); URINE LEUK ESTERASE NEGATIVE (NEGATIVE); URINE NITRITE NEGATIVE (NEGATIVE); URINE PROTEIN TRACE (NEGATIVE); URINE UROBILINOGEN 0.2 mg/dL (0.2-1.0)
[2019-06-03] MEDS: PIPERACILLIN/TAZOB 3.375 GM 3.375 GM in DEXTROSE 5%-WATER - 50 ML IVPB SCH ×3 (08:55→17:54)
[2019-06-03] MEDS: DEXTROSE 5%-0.45% SALINE 1,000 ML IV SCH (09:04)
[2019-06-03 09:52] LABS: BASO % 1.7 % (0-2.0); EOS % 2.9 % (0-4.5); HEMATOCRIT 39.6 % (32.4-45.2); HEMOGLOBIN 13.2 GM/dL (10.7-15.3); MCH 31.4 pg (25.7-33.7); MCHC 33.4 g/dl (32.0-36.0); MONO % 7.7 % (3.8-10.2); NEUT % 63.7 % (42.8-82.8); PLATELET COUNT 441 K/MM3 (134-434); RBC 4.22 M/mm3 (3.60-5.2); RDW 14.4 % (11.6-15.6); WHITE BLOOD COUNT 13.2 K/mm3 (4.0-10.0)
[2019-06-03] MEDS ORDERED: PIPERACILLIN/TAZOB 3.375 GM 3.375 GM in DEXTROSE 5%-WATER - 50 ML IVPB SCH (10:00)
[2019-06-03 10:19] LABS: ALBUMIN 3.4 g/dl (3.4-5.0); BILIRUBIN,TOTAL 0.6 mg/dL (0.2-1); BLOOD UREA NITROGEN 4.6 mg/dL (7-18); CALCIUM 8.3 mg/dL (8.5-10.1); CREATININE 0.8 mg/dL (0.55-1.3); POTASSIUM 3.6 mmol/L (3.5-5.1)
[2019-06-03] MEDS ORDERED: PIPERACILLIN/TAZOBACTAM 3.375 GM VIAL IVPB ONE ×2 (10:44→17:10)
[2019-06-03] MEDS ORDERED: DEXTROSE 5%-WATER - 50 ML IVPB ONE ×2 (10:45→17:10)
[2019-06-03] MEDS: MORPHINE SULFATE 2 MG/ML VIAL IVPUSH PRN ×2 (10:48→17:53)
--- NOTE | 2019-06-03 16:23 | CON.ID ---
Consult - History of Present Illness History of Present Illness: 49 y.o. female with PMH of Crohn's disease on Humira, depression presented with c/o not feeling well for the past wk. 2 days ago she developed abdominal pain mainly in left lower abdomen which was associated with a multiple non- blood vomiting episodes/looser BMs. Pt also reports subjective fever and chills. She denies SOB/CP/dysuria or any other specific symptoms. In the ER pt was afebrile but noted to have wbc of 14.6K and in severe abd pain. CT abd/ pelvis reveals a SBO likely from a stricture. Currently pt has an NGT, reports 1 soft BM this morning and no significant abd pain (given morphine). She states she is feeling better. - History Source History Provided By: Patient Limitations to Obtaining History: No Limitations - Past Medical History Pulmonary: Yes: Asthma Gastrointestinal: Yes: Crohn's Disease, GERD ...LMP: 05/01/19 ...: No - Past Surgical History Past Surgical History: Yes: None Additional Surgical History: b/l RC repair - Alcohol/Substance Use Hx Alcohol Use: No - Smoking History Smoking history: Current every day smoker Have you smoked in the past 12 months: No Aproximately how many cigarettes per day: 10 - Social History ADL: Independent History of Recent Travel: No Home Medications - Allergies Allergies/Adverse Reactions: Allergies Allergy/AdvReac Type Severity Reaction Status Date / Time metronidazole [From Flagyl] Allergy Mild Hives Verified 06/02/19 15:06 Metronidazole HCl Allergy Mild Hives Verified 06/02/19 15:06 [From Flagyl] shellfish derived Allergy Unknown Verified 06/02/19 15:06 latex Allergy Verified 06/02/19 15:06 pepper (genus Capsicum) Allergy Verified 06/02/19 15:06 Sulfa (Sulfonamide Allergy Rash, Verified 06/02/19 15:06 Antibiotics) ITCHY MOUTH - Home Medications Home Medications: Ambulatory Orders Adalimumab [Humira] 40 mg SQ ASDIR 05/09/15 Omeprazole 40 mg PO DAILY 05/09/15 Mirtazapine [Remeron -] 15 mg PO DAILY 06/13/15 Albuterol Sulfate Inhaler - [Ventolin HFA Inhaler -] 1 - 2 inh PO Q4H PRN Ipratropium [place] 2 spray NS BID PRN #1 spray 08/21/18 Cyclobenzaprine HCl [Flexeril -] 10 mg PO TID PRN #10 tablet 08/24/18 Levofloxacin [Levaquin] 500 mg PO DAILY #7 tablet 12/31/18 Review of Systems - Review of Systems Constitutional: reports: No Symptoms. denies: Chills, Diaphoresis, Fever, Lethargy, Loss of Appetite, Malaise, Night Sweats, Unintentional Wgt. Loss, Weakness, Other Eyes: reports: No Symptoms. denies: Blind Spots, Blurred Vision, Double Vision , Eye Pain, Floaters, Photophobia, Recent Change in Vision, Other HENT: reports: No Symptoms. denies: Difficult Swallowing, Ear Discharge, Ear Pain, Epistaxis, Gingival Bleeding, Hearing Loss, Mouth Swelling, Nasal Congestion, Ocular Prosthesis, Throat Pain, Toothache, Ringing in Ears, Other Neck: reports: No Symptoms. denies: Decreased ROM, Lumps, Pain on Movement, Stiffness, Swollen Glands, Tenderness, Other Cardiovascular: reports: No Symptoms. denies: Chest Pain, Edema, Palpitations, Shortness of Breath, Other Respiratory: reports: No Symptoms. denies: Cough, Exercise Intolerance, Hemoptysis, Orthopnea, PND, Snoring, SOB, SOB on Exertion, Wheezing, Other Gastrointestinal: reports: No Symptoms. denies: Abdominal Pain, Bloating, Constipation, Diarrhea, Dysphagia, Indigestion, Melena, Nausea, Rectal Bleeding , Vomiting, Vomiting Blood, Other Genitourinary: reports: No Symptoms. denies: Burning, Discharge, Dysuria, Flank Pain, Frequency, Hematuria, Incontinence, Lesions, Menses, Pain, Testicular Mass, Testicular Pain, Testicular Swelling, Urgency, Vaginal Bleeding , Other Musculoskeletal: reports: No Symptoms. denies: Back Pain, Crepitus, Decreased ROM, Extremity Pain, Joint Pain, Joint Swelling, Muscle Pain, Muscle Cramps, Muscle Weakness, Other Integumentary: reports: No Symptoms. denies: Blister, Bruising, Change in Color , Eczema, Erythema, Incision, Lesions, Lump, Pallor, Pruritis, Rash, Wound, Other Neurological: reports: No Symptoms. denies: Change in LOC, Change in Speech, Confusion, Dizziness, Headache, Incoordination, Numbness, Parasthesia, Pre- Existing Deficit, Seizure, Syncope, Tremors, Unsteady Gait, Weakness, Other Endocrine: reports: No Symptoms. denies: Excessive Sweating, Flushing, Increased Hunger, Increased Thirst, Intolerance to Cold, Intolerance to Heat, Unexplained Weight Gain, Unexplained Weight Loss, Other Hematology/Lymphatic: reports: No Symptoms. denies: Easily Bruised, Excessive Bleeding, Swollen Glands, Other Psychiatric: reports: No Symptoms. denies: Altered Sleep Pattern, Anxiety, Depression, Hallucinations, Panic, Paranoia, Suicidal, Other Physical Exam Vital Signs: Vital Signs Temperature 98.6 F 06/03/19 14:39 Pulse Rate 64 06/03/19 14:39 Respiratory Rate 18 06/03/19 14:39 Blood Pressure 103/63 06/03/19 14:39 O2 Sat by Pulse Oximetry (%) 97 06/03/19 11:45 Constitutional: Yes: No Distress, Calm Eyes: Yes: Conjunctiva Clear, EOM Intact HENT: Yes: Atraumatic Neck: Yes: Supple Cardiovascular: Yes: Regular Rate and Rhythm Respiratory: Yes: CTA Bilaterally Gastrointestinal: Yes: Normal Bowel Sounds, Soft, Other (NGT in place) Renal/: Yes: WNL. No: Anuria, Bladder Distention, CVA Tenderness - Left, CVA Tenderness - Right, Boothe Present, Hematuria, Incontinence, Menses Present, Oliguria, Polyuria, , Scrotal Edema, Urethral Discharge, Vaginal Bleeding, Vaginal Discharge, Other Musculoskeletal: Yes: WNL. No: Back Pain, Joint Stiffness, Joint Swelling, Muscle Pain, Muscle Weakness, Other Extremities: Yes: WNL. No: Amputation, Calf Tenderness, Cold, Cool, Cyanosis, Deformity, Delayed Capillary Refill, Erythema, External Rotation, Internal Rotation, Pallor, Shortened, Other Edema: Yes Integumentary: Yes: WNL. No: Body Piercing, Bruising, Erythema, Incision, Jaundice, Laceration, Petechiae, Pressure Ulcer, Rash, Skin Tear, Tattoos, Tenting, Onychomycosis, Venous Stasis Changes, Other Neurological: Yes: Alert, Oriented Labs: CBC, BMP 06/03/19 09:41 06/03/19 09:41 Laboratory Tests 06/02/19 06/02/19 06/02/19 17:10 17:10 17:10 WBC 14.6 H RBC 4.87 Hgb 15.4 H Hct 46.1 H D MCV 94.7 MCH 31.7 MCHC 33.4 RDW 14.5 Plt Count 480 H MPV 8.5 Absolute Neuts (auto) 10.7 H Neutrophils % 72.9 D Lymphocytes % 18.2 D Monocytes % 6.2 Eosinophils % 1.2 Basophils % 1.5 D Nucleated RBC % 0 Sodium 137 Potassium 3.9 Chloride 105 Carbon Dioxide 28 Anion Gap 5 L BUN 6.7 L Creatinine 0.8 Est GFR (CKD-EPI)AfAm 101.75 Est GFR (CKD-EPI)NonAf 87.79 Random Glucose 105 Calcium 9.6 Magnesium 2.5 H Total Bilirubin 0.5 AST 16 ALT 30 Alkaline Phosphatase 146 H Total Protein 8.5 H Albumin 4.3 Lipase 63 L Beta HCG, Quant Urine Color Urine Appearance Urine pH Ur Specific [place] Urine Protein Urine Glucose (UA) Urine Ketones Urine Blood Urine Nitrite Urine Bilirubin Urine Urobilinogen Ur Leukocyte Esterase Urine HCG, Qual 06/02/19 06/03/19 06/03/19 17:10 08:35 08:35 WBC RBC Hgb Hct MCV MCH MCHC RDW Plt Count MPV Absolute Neuts (auto) Neutrophils % Lymphocytes % Monocytes % Eosinophils % Basophils % Nucleated RBC % Sodium Potassium Chloride Carbon Dioxide Anion Gap BUN Creatinine Est GFR (CKD-EPI)AfAm Est GFR (CKD-EPI)NonAf Random Glucose Calcium Magnesium Total Bilirubin AST ALT Alkaline Phosphatase Total Protein Albumin Lipase Beta HCG, Quant < 1.0 Urine Color Yellow Urine Appearance Cloudy Urine pH 5.5 Ur Specific [place] 1.026 Urine Protein Trace Urine Glucose (UA) Negative Urine Ketones Negative Urine Blood Negative Urine Nitrite Negative Urine Bilirubin Negative Urine Urobilinogen 0.2 Ur Leukocyte Esterase Negative Urine HCG, Qual Negative 06/03/19 06/03/19 09:41 09:41 WBC 13.2 H RBC 4.22 Hgb 13.2 Hct 39.6 MCV 94.0 MCH 31.4 MCHC 33.4 RDW 14.4 Plt Count 441 H MPV 8.0 Absolute Neuts (auto) 8.4 H Neutrophils % 63.7 Lymphocytes % 24.0 D Monocytes % 7.7 Eosinophils % 2.9 D Basophils % 1.7 Nucleated RBC % 0 Sodium 140 Potassium 3.6 Chloride 110 H Carbon Dioxide 25 Anion Gap 5 L BUN 4.6 L Creatinine 0.8 Est GFR (CKD-EPI)AfAm 101.75 Est GFR (CKD-EPI)NonAf 87.79 Random Glucose 156 H Calcium 8.3 L Magnesium Total Bilirubin 0.6 AST 15 ALT 23 Alkaline Phosphatase 122 H Total Protein 7.0 Albumin 3.4 Lipase Beta HCG, Quant Urine Color Urine Appearance Urine pH Ur Specific [place] Urine Protein Urine Glucose (UA) Urine Ketones Urine Blood Urine Nitrite Urine Bilirubin Urine Urobilinogen Ur Leukocyte Esterase Urine HCG, Qual Imaging - Results Cat Scan: Report Reviewed Problem List - Problems (1) SBO (small bowel obstruction) Code(s): K56.609 - UNSP INTESTNL OBST, UNSP TO PARTIAL VERSUS COMPLETE OBST (2) Crohn's colitis Code(s): K50.10 - CROHN'S DISEASE OF LARGE INTESTINE WITHOUT COMPLICATIONS Qualifiers: Digestive disease complication type: unspecified complication Qualified Code(s): K50.119 - Crohn's disease of large intestine with unspecified complications (3) Diarrhea Code(s): R19.7 - DIARRHEA, UNSPECIFIED Qualifiers: Diarrhea type: unspecified type Qualified Code(s): R19.7 - Diarrhea, unspecified (4) Nausea and vomiting Code(s): R11.2 - NAUSEA WITH VOMITING, UNSPECIFIED Assessment/Plan SBO Crohn's Disease - on Humira Leukocytosis -- Will continue with Zosyn for now -- Surgical evaluation -- Pt is NPO, NGT in place -- monitor wbc trend -- monitor vitals Will follow Thank you
--- NOTE | 2019-06-03 16:30 | HP ---
Admitting History and Physical - Admission History of Present Illness: Pt is a 49 y/o female with PMH singificant for GERD, asthma, Crohn's disease, SBO and depression. Pt now presented to the ER with complaint of generalized not feeling well for the past week. However 2 days ago she developed abdominal pain mainly in left lower abdomen which was associated with a multiple non- blood vomiting episodes/looser BMs. Pt also reports subjective fever and chills. In the ER pt was afebrile but noted to have wbc of 14.6K and in severe abd pain. CT abd/pelvis reveals a SBO likely from a stricture and ? abdominal abscess. - Past Medical History Pulmonary: Yes: Asthma Gastrointestinal: Yes: Crohn's Disease, GERD ...LMP: 05/01/19 ...: No Heme/Onc: Yes: Anemia - Past Surgical History Past Surgical History: Yes: None - Smoking History Smoking history: Current every day smoker Have you smoked in the past 12 months: No Aproximately how many cigarettes per day: 10 - Alcohol/Substance Use Hx Alcohol Use: No - Social History ADL: Independent History of Recent Travel: No Home Medications - Allergies Allergies/Adverse Reactions: Allergies Allergy/AdvReac Type Severity Reaction Status Date / Time metronidazole [From Flagyl] Allergy Mild Hives Verified 06/02/19 15:06 Metronidazole HCl Allergy Mild Hives Verified 06/02/19 15:06 [From Flagyl] shellfish derived Allergy Unknown Verified 06/02/19 15:06 latex Allergy Verified 06/02/19 15:06 pepper (genus Capsicum) Allergy Verified 06/02/19 15:06 Sulfa (Sulfonamide Allergy Rash, Verified 06/02/19 15:06 Antibiotics) ITCHY MOUTH - Home Medications Home Medications: Ambulatory Orders Adalimumab [Humira] 40 mg SQ ASDIR 05/09/15 Omeprazole 40 mg PO DAILY 05/09/15 Mirtazapine [Remeron -] 15 mg PO DAILY 06/13/15 Albuterol Sulfate Inhaler - [Ventolin HFA Inhaler -] 1 - 2 inh PO Q4H PRN Ipratropium [place] 2 spray NS BID PRN #1 spray 08/21/18 Cyclobenzaprine HCl [Flexeril -] 10 mg PO TID PRN #10 tablet 08/24/18 Levofloxacin [Levaquin] 500 mg PO DAILY #7 tablet 12/31/18 Family Medical History Family History: Unremarkable Review of Systems - Review of Systems Constitutional: reports: Loss of Appetite, Malaise, Weakness Eyes: reports: No Symptoms HENT: reports: No Symptoms Neck: reports: No Symptoms Cardiovascular: reports: No Symptoms Respiratory: reports: No Symptoms Gastrointestinal: reports: Abdominal Pain, Nausea, Vomiting Genitourinary: reports: No Symptoms Physical Examination Vital Signs: Vital Signs Temperature 98.6 F 06/03/19 14:39 Pulse Rate 64 06/03/19 14:39 Respiratory Rate 18 06/03/19 14:39 Blood Pressure 103/63 06/03/19 14:39 O2 Sat by Pulse Oximetry (%) 97 06/03/19 11:45 Constitutional: Yes: Well Nourished Eyes: Yes: WNL HENT: Yes: Other ((+) NGT) Neck: Yes: WNL, Supple Cardiovascular: Yes: WNL, Regular Rate and Rhythm Respiratory: Yes: WNL, Regular, CTA Bilaterally Gastrointestinal: Yes: WNL, Normal Bowel Sounds, Soft Extremities: Yes: WNL Edema: No Neurological: Yes: WNL, Alert, Oriented ...Motor Strength: WNL Labs: CBC, BMP 06/03/19 09:41 06/03/19 09:41 Problem List - Problems (1) SBO (small bowel obstruction) Assessment/Plan: CT scan abd/pelvis showed partial SBO and ?abdominal abscess Cont IV antibxs Cont NPO/IVF Surgical consult GI consult Serial abdominal xrays Advance diet as tolerated Code(s): K56.609 - UNSP INTESTNL OBST, UNSP TO PARTIAL VERSUS COMPLETE OBST (2) Asthma Assessment/Plan: Stable Duoneb prn Code(s): J45.909 - UNSPECIFIED ASTHMA, UNCOMPLICATED (3) GERD (gastroesophageal reflux disease) Assessment/Plan: Cont protonix Code(s): K21.9 - GASTRO-ESOPHAGEAL REFLUX DISEASE WITHOUT ESOPHAGITIS (4) Anemia Assessment/Plan: Due to chronic dz Code(s): D64.9 - ANEMIA, UNSPECIFIED (5) Nausea and vomiting Assessment/Plan: Resolved Due to SBO Code(s): R11.2 - NAUSEA WITH VOMITING, UNSPECIFIED (6) Crohn disease Assessment/Plan: Humira on hold Code(s): K50.90 - CROHN'S DISEASE, UNSPECIFIED, WITHOUT COMPLICATIONS
--- NOTE | 2019-06-03 17:15 | CONSULT ---
Consult Consult Specialty:: Surgery - History of Present Illness History of Present Illness: 49 yo F w/ a h/o Chron's disease, on Humira, comes in c/o 1 week of "not feeling well", with generalized malaise, hot flashes. She says that 2 days ago she started having multiple episodes of NBNB vomiting and NB diarrhea which got worse yesterday. - History Source History Provided By: Patient - Past Medical History Pulmonary: Yes: Asthma Gastrointestinal: Yes: Crohn's Disease, GERD ...LMP: 05/01/19 ...: No - Past Surgical History Past Surgical History: Yes: None Additional Surgical History: b/l RC repair - Alcohol/Substance Use Hx Alcohol Use: No - Smoking History Smoking history: Current every day smoker Have you smoked in the past 12 months: No Aproximately how many cigarettes per day: 10 - Social History ADL: Independent History of Recent Travel: No Home Medications - Allergies Allergies/Adverse Reactions: Allergies Allergy/AdvReac Type Severity Reaction Status Date / Time metronidazole [From Flagyl] Allergy Mild Hives Verified 06/02/19 15:06 Metronidazole HCl Allergy Mild Hives Verified 06/02/19 15:06 [From Flagyl] shellfish derived Allergy Unknown Verified 06/02/19 15:06 latex Allergy Verified 06/02/19 15:06 pepper (genus Capsicum) Allergy Verified 06/02/19 15:06 Sulfa (Sulfonamide Allergy Rash, Verified 06/02/19 15:06 Antibiotics) ITCHY MOUTH - Home Medications Home Medications: Ambulatory Orders Adalimumab [Humira] 40 mg SQ ASDIR 05/09/15 Omeprazole 40 mg PO DAILY 05/09/15 Mirtazapine [Remeron -] 15 mg PO DAILY 06/13/15 Albuterol Sulfate Inhaler - [Ventolin HFA Inhaler -] 1 - 2 inh PO Q4H PRN Ipratropium Barney 2 spray NS BID PRN #1 spray 08/21/18 Cyclobenzaprine HCl [Flexeril -] 10 mg PO TID PRN #10 tablet 08/24/18 Levofloxacin [Levaquin] 500 mg PO DAILY #7 tablet 12/31/18 Physical Exam Vital Signs: Vital Signs Temperature 98.6 F 06/03/19 14:39 Pulse Rate 64 06/03/19 14:39 Respiratory Rate 18 06/03/19 14:39 Blood Pressure 103/63 06/03/19 14:39 O2 Sat by Pulse Oximetry (%) 97 06/03/19 11:45 Gastrointestinal: Yes: Soft, Distention (mild), Tenderness (diffuse and mild) Labs: CBC, BMP 06/03/19 09:41 06/03/19 09:41 Imaging - Results Chest X-ray: Report Reviewed, Image Reviewed X-ray: Report Reviewed, Image Reviewed Cat Scan: Report Reviewed, Image Reviewed Problem List - Problems (1) Exacerbation of Crohn's disease of small intestine with intestinal obstruction Assessment/Plan: partial SBO with possible small abscess may be resolving as patient had large BM after CT and FUA showing less distended sb loops and air in the colon continue bowel rest, NG to intermittent suction, IVF, and IV abx GI consult Code(s): K50.012 - CROHN'S DISEASE OF SMALL INTESTINE W INTESTINAL OBSTRUCTION (2) SBO (small bowel obstruction) Code(s): K56.609 - UNSP INTESTNL OBST, UNSP TO PARTIAL VERSUS COMPLETE OBST
[2019-06-03] MEDS: HEPARIN NA (PORCINE) 5,000 UNITS/ML 1ML VIAL SQ SCH ×3 (17:50→23:19)
[2019-06-03] MEDS: ONDANSETRON 4 MG/2 ML VIAL IVPUSH PRN ×2 (18:10→23:45)
[2019-06-03] MEDS: LACTATED RINGERS SOLUTION 1,000 ML/1,000 ML INFUS.BAG IV SCH (23:21)
[2019-06-04] MEDS ORDERED: PIPERACILLIN/TAZOBACTAM 3.375 GM VIAL IVPB ONE ×3 (01:37→16:32)
[2019-06-04] MEDS ORDERED: DEXTROSE 5%-WATER - 50 ML IVPB ONE ×3 (01:37→16:32)
[2019-06-04] MEDS: PIPERACILLIN/TAZOB 3.375 GM 3.375 GM in DEXTROSE 5%-WATER - 50 ML IVPB SCH ×3 (01:50→18:24)
[2019-06-04] MEDS: MORPHINE SULFATE 2 MG/ML VIAL IVPUSH PRN ×2 (01:50→22:46)
[2019-06-04] MEDS: DEXTROSE 5%-0.45% SALINE 1,000 ML IV SCH ×2 (04:18→16:48)
[2019-06-04] MEDS: ONDANSETRON 4 MG/2 ML VIAL IVPUSH PRN ×2 (05:34→22:47)
[2019-06-04 08:14] LABS: BASO % 0.8 % (0-2.0); EOS % 4.4 % (0-4.5); HEMATOCRIT 36.7 % (32.4-45.2); HEMOGLOBIN 12.5 GM/dL (10.7-15.3); LYMPH % 34.9 % (8-40); MEAN CELL VOLUME 94.1 fl (80-96); MEAN PLT VOLUME 8.5 fl (7.5-11.1); MONO % 9.5 % (3.8-10.2); NEUT % 50.4 % (42.8-82.8); PLATELET COUNT 367 K/MM3 (134-434); RDW 14.2 % (11.6-15.6); WHITE BLOOD COUNT 10.3 K/mm3 (4.0-10.0)
[2019-06-04 08:48] LABS: ALBUMIN 3.2 g/dl (3.4-5.0); BILIRUBIN,TOTAL 0.4 mg/dL (0.2-1); BLOOD UREA NITROGEN 3.4 mg/dL (7-18); CALCIUM 8.1 mg/dL (8.5-10.1); CREATININE 0.8 mg/dL (0.55-1.3); POTASSIUM 3.3 mmol/L (3.5-5.1); TOT PROT 6.4 g/dl (6.4-8.2)
[2019-06-04] MEDS: HEPARIN NA (PORCINE) 5,000 UNITS/ML 1ML VIAL SQ SCH ×2 (09:30→21:18)
[2019-06-04] MEDS ORDERED: ACETAMINOPHEN 1000 MG/100 ML VIAL (NON FORMULARY) IVPB ONE (17:30)
--- NOTE | 2019-06-04 18:41 | PN ---
Progress Note, Physician History of Present Illness: Pt feels much better. Had a BM today, no abd tenderness. Pt is afebrile with decreasing wbc. RUE erythema/tenderness noted at previous IV site. No other complaints. - Current Medication List Current Medications: Active Medications Heparin Sodium (Porcine) (Heparin -) 5,000 unit SQ BID DARRION Last Admin: 06/04/19 09:30 Dose: 5,000 unit Dextrose/Sodium Chloride (D5-1/2ns -) 1,000 mls @ 100 mls/hr IV ASDIR DARRION Last Admin: 06/04/19 16:48 Dose: 100 mls/hr Piperacillin Sod/Tazobactam (Sod 3.375 gm/ Dextrose) 50 mls @ 100 mls/hr IVPB Q8H-IV DARRION; Protocol Last Admin: 06/04/19 18:24 Dose: 100 mls/hr Morphine Sulfate (Morphine Sulfate) 2 mg IVPUSH Q6H PRN PRN Reason: PAIN LEVEL 2-8 Ondansetron HCl (Zofran Injection) 4 mg IVPUSH Q6H PRN PRN Reason: NAUSEA AND/OR VOMITING Last Admin: 06/04/19 05:34 Dose: 4 mg - Objective Vital Signs: Vital Signs Temperature 98.6 F 06/04/19 15:11 Pulse Rate 59 L 06/04/19 15:11 Respiratory Rate 18 06/04/19 15:11 Blood Pressure 156/79 06/04/19 15:11 O2 Sat by Pulse Oximetry (%) 100 06/04/19 09:00 Constitutional: Yes: No Distress, Calm HENT: Yes: Other (NGT) Cardiovascular: Yes: Regular Rate and Rhythm Respiratory: Yes: Regular Gastrointestinal: Yes: Normal Bowel Sounds, Soft Genitourinary: Yes: WNL Musculoskeletal: Yes: WNL Extremities: Yes: Erythema (RUE erythema/tenderness) Edema: No Neurological: Yes: Alert, Oriented Labs: CBC, BMP 06/04/19 07:10 06/04/19 07:10 Microbiology 06/03/19 08:35 Urine - Urine Clean Catch Urine Culture - Preliminary Lactose Fermenting Neg Bacilli - ....Imaging Cat Scan: Report Reviewed Other: Pending Problem List - Problems (1) SBO (small bowel obstruction) Code(s): K56.609 - UNSP INTESTNL OBST, UNSP TO PARTIAL VERSUS COMPLETE OBST (2) Crohn's colitis Code(s): K50.10 - CROHN'S DISEASE OF LARGE INTESTINE WITHOUT COMPLICATIONS Qualifiers: Digestive disease complication type: unspecified complication Qualified Code(s): K50.119 - Crohn's disease of large intestine with unspecified complications (3) Diarrhea Code(s): R19.7 - DIARRHEA, UNSPECIFIED Qualifiers: Diarrhea type: unspecified type Qualified Code(s): R19.7 - Diarrhea, unspecified (4) Nausea and vomiting Code(s): R11.2 - NAUSEA WITH VOMITING, UNSPECIFIED Assessment/Plan Partial SBO Possible abscess Crohn's Disease - on Humira Leukocytosis RUE erythema - likely phlebitis -- Will continue with Zosyn for now -- Pt had BM, decrease in abd pain -- wbc normal now -- Pt is NPO, NGT in place -- GI evaluation -- f/u RUE doppler -- monitor for continued improvement, re-assess for abscess -- monitor vitals
--- NOTE | 2019-06-04 23:11 | PN ---
Progress Note, Physician - Current Medication List Current Medications: Active Medications Heparin Sodium (Porcine) (Heparin -) 5,000 unit SQ BID DARRION Last Admin: 06/04/19 21:18 Dose: 5,000 unit Dextrose/Sodium Chloride (D5-1/2ns -) 1,000 mls @ 100 mls/hr IV ASDIR DARRION Last Admin: 06/04/19 16:48 Dose: 100 mls/hr Piperacillin Sod/Tazobactam (Sod 3.375 gm/ Dextrose) 50 mls @ 100 mls/hr IVPB Q8H-IV DARRION; Protocol Last Admin: 06/04/19 18:24 Dose: 100 mls/hr Morphine Sulfate (Morphine Sulfate) 2 mg IVPUSH Q6H PRN PRN Reason: PAIN LEVEL 2-8 Last Admin: 06/04/19 22:46 Dose: 2 mg Ondansetron HCl (Zofran Injection) 4 mg IVPUSH Q6H PRN PRN Reason: NAUSEA AND/OR VOMITING Last Admin: 06/04/19 22:47 Dose: 4 mg - Objective Vital Signs: Vital Signs Temperature 99.8 F H 06/04/19 21:21 Pulse Rate 57 L 06/04/19 21:21 Respiratory Rate 20 06/04/19 21:21 Blood Pressure 125/66 06/04/19 21:21 O2 Sat by Pulse Oximetry (%) 100 06/04/19 09:00 Labs: CBC, BMP 06/04/19 07:10 06/04/19 07:10 Problem List - Problems (1) SBO (small bowel obstruction) Code(s): K56.609 - UNSP INTESTNL OBST, UNSP TO PARTIAL VERSUS COMPLETE OBST (2) Asthma Code(s): J45.909 - UNSPECIFIED ASTHMA, UNCOMPLICATED (3) GERD (gastroesophageal reflux disease) Code(s): K21.9 - GASTRO-ESOPHAGEAL REFLUX DISEASE WITHOUT ESOPHAGITIS (4) Anemia Code(s): D64.9 - ANEMIA, UNSPECIFIED (5) Nausea and vomiting Code(s): R11.2 - NAUSEA WITH VOMITING, UNSPECIFIED (6) Crohn disease Code(s): K50.90 - CROHN'S DISEASE, UNSPECIFIED, WITHOUT COMPLICATIONS
[2019-06-05] MEDS ORDERED: PIPERACILLIN/TAZOBACTAM 3.375 GM VIAL IVPB ONE ×3 (01:15→17:58)
[2019-06-05] MEDS ORDERED: DEXTROSE 5%-WATER - 50 ML IVPB ONE ×3 (01:16→17:59)
[2019-06-05] MEDS: PIPERACILLIN/TAZOB 3.375 GM 3.375 GM in DEXTROSE 5%-WATER - 50 ML IVPB SCH ×3 (01:21→18:33)
[2019-06-05] MEDS ORDERED: ACETAMINOPHEN 1000 MG/100 ML VIAL (NON FORMULARY) IVPB ONE (03:30)
[2019-06-05 07:14] LABS: BASO % 0.2 % (0-2.0); HEMOGLOBIN 12.1 GM/dL (10.7-15.3); LYMPH % 41.1 % (8-40); MCH 31.5 pg (25.7-33.7); MCHC 33.6 g/dl (32.0-36.0); MEAN CELL VOLUME 93.8 fl (80-96); MEAN PLT VOLUME 8.7 fl (7.5-11.1); MONO % 10.1 % (3.8-10.2); NEUT % 42.6 % (42.8-82.8); PLATELET COUNT 373 K/MM3 (134-434); RBC 3.84 M/mm3 (3.60-5.2); RDW 13.9 % (11.6-15.6); WHITE BLOOD COUNT 9.7 K/mm3 (4.0-10.0)
[2019-06-05 07:45] LABS: ALBUMIN 3.1 g/dl (3.4-5.0); BILIRUBIN,TOTAL 0.5 mg/dL (0.2-1); CALCIUM 8.1 mg/dL (8.5-10.1); CREATININE 0.7 mg/dL (0.55-1.3); POTASSIUM 3.1 mmol/L (3.5-5.1); TOT PROT 6.1 g/dl (6.4-8.2)
[2019-06-05 08:21] LABS: BLOOD UREA NITROGEN 2.2 mg/dL (7-18)
--- NOTE | 2019-06-05 08:58 | PN ---
Progress Note, Physician Chief Complaint: small bowel obstruction History of Present Illness: Passing flatus and soft stool Feels hungry Denies abdominal pain - Current Medication List Current Medications: Active Medications Heparin Sodium (Porcine) (Heparin -) 5,000 unit SQ BID DARRION Last Admin: 06/04/19 21:18 Dose: 5,000 unit Dextrose/Sodium Chloride (D5-1/2ns -) 1,000 mls @ 100 mls/hr IV ASDIR DARRION Last Admin: 06/04/19 16:48 Dose: 100 mls/hr Piperacillin Sod/Tazobactam (Sod 3.375 gm/ Dextrose) 50 mls @ 100 mls/hr IVPB Q8H-IV DARRION; Protocol Last Admin: 06/05/19 01:21 Dose: 100 mls/hr Potassium Chloride (Potassium Chloride 10 Meq Premix Ivpb -) 10 meq in 100 mls @ 100 mls/hr IVPB Q60M DARRION Stop: 06/05/19 11:59 Morphine Sulfate (Morphine Sulfate) 2 mg IVPUSH Q6H PRN PRN Reason: PAIN LEVEL 2-8 Last Admin: 06/04/19 22:46 Dose: 2 mg Ondansetron HCl (Zofran Injection) 4 mg IVPUSH Q6H PRN PRN Reason: NAUSEA AND/OR VOMITING Last Admin: 06/04/19 22:47 Dose: 4 mg - Objective Vital Signs: Vital Signs Temperature 98.9 F 06/05/19 06:00 Pulse Rate 58 L 06/05/19 06:00 Respiratory Rate 20 06/05/19 06:00 Blood Pressure 146/85 06/05/19 06:00 O2 Sat by Pulse Oximetry (%) 100 06/04/19 21:00 Constitutional: Yes: No Distress Gastrointestinal: Yes: Soft, Tenderness (minimal RLQ tenderness), Other (Ngt drainage non-bilous and 50 cc/12 hours) Labs: CBC, BMP 06/05/19 06:36 06/05/19 06:36 Problem List - Problems (1) Exacerbation of Crohn's disease of small intestine with intestinal obstruction Assessment/Plan: Resolved partial SBO and intra-abdominal infection D/C NGT - done start clear liquid diet advance SCOTT Code(s): K50.012 - CROHN'S DISEASE OF SMALL INTESTINE W INTESTINAL OBSTRUCTION (2) SBO (small bowel obstruction) Code(s): K56.609 - UNSP INTESTNL OBST, UNSP TO PARTIAL VERSUS COMPLETE OBST
--- NOTE | 2019-06-05 10:30 | PN ---
Progress Note, Physician History of Present Illness: doing well no new issues surgery note noted - Current Medication List Current Medications: Active Medications Heparin Sodium (Porcine) (Heparin -) 5,000 unit SQ BID DARRION Last Admin: 06/04/19 21:18 Dose: 5,000 unit Piperacillin Sod/Tazobactam (Sod 3.375 gm/ Dextrose) 50 mls @ 100 mls/hr IVPB Q8H-IV DARRION; Protocol Last Admin: 06/05/19 01:21 Dose: 100 mls/hr Potassium Chloride (Potassium Chloride 10 Meq Premix Ivpb -) 10 meq in 100 mls @ 100 mls/hr IVPB Q60M DARRION Stop: 06/05/19 11:59 Potassium Chloride/Dextrose/Sod Cl (D5-1/2ns+20 Meq Kcl -) 20 meq in 1,000 mls @ 42 mls/hr IV ASDIR DARRION Morphine Sulfate (Morphine Sulfate) 2 mg IVPUSH Q6H PRN PRN Reason: PAIN LEVEL 2-8 Last Admin: 06/04/19 22:46 Dose: 2 mg Ondansetron HCl (Zofran Injection) 4 mg IVPUSH Q6H PRN PRN Reason: NAUSEA AND/OR VOMITING Last Admin: 06/04/19 22:47 Dose: 4 mg - Objective Vital Signs: Vital Signs Temperature 98.9 F 06/05/19 06:00 Pulse Rate 58 L 06/05/19 06:00 Respiratory Rate 20 06/05/19 06:00 Blood Pressure 146/85 06/05/19 06:00 O2 Sat by Pulse Oximetry (%) 100 06/04/19 21:00 Constitutional: Yes: No Distress, Calm Cardiovascular: Yes: S1, S2 Respiratory: Yes: Regular, CTA Bilaterally Gastrointestinal: Yes: Soft, Hypoactive Bowel Sounds Musculoskeletal: Yes: WNL Extremities: Yes: WNL Neurological: Yes: Alert, Oriented Psychiatric: Yes: Alert, Oriented Labs: CBC, BMP 06/05/19 06:36 06/05/19 06:36 Assessment/Plan Problem List - Problems (1) SBO (small bowel obstruction) Code(s): K56.609 - UNSP INTESTNL OBST, UNSP TO PARTIAL VERSUS COMPLETE OBST (2) Crohn's colitis Code(s): K50.10 - CROHN'S DISEASE OF LARGE INTESTINE WITHOUT COMPLICATIONS Qualifiers: Digestive disease complication type: unspecified complication Qualified Code(s): K50.119 - Crohn's disease of large intestine with unspecified complications (3) Diarrhea Code(s): R19.7 - DIARRHEA, UNSPECIFIED Qualifiers: Diarrhea type: unspecified type Qualified Code(s): R19.7 - Diarrhea, unspecified (4) Nausea and vomiting Code(s): R11.2 - NAUSEA WITH VOMITING, UNSPECIFIED Assessment/Plan SBO Crohn's Disease - on Humira Leukocytosis continue current mgmt wbc normal await for toleration of diet rest as per the team
[2019-06-05] MEDS: D5-1/2NS+20 MEQ KCL - 20 MEQ/1,000 ML INFUS.BAG IV SCH (10:40)
[2019-06-05] MEDS: KCL 10 MEQ IVPB 10 MEQ/100 ML INFUS.BAG IVPB SCH ×3 (10:45→17:57)
[2019-06-05] MEDS: HEPARIN NA (PORCINE) 5,000 UNITS/ML 1ML VIAL SQ SCH ×2 (10:47→21:07)
[2019-06-05] MEDS ORDERED: POTASSIUM CHLORIDE ORAL LIQUID 20 MEQ/15 ML PO ONE (18:00)
[2019-06-05] MEDS: MORPHINE SULFATE 2 MG/ML VIAL IVPUSH PRN (21:24)
--- NOTE | 2019-06-05 23:04 | PN ---
Progress Note, Physician History of Present Illness: Pt tolerating clear liquids - Current Medication List Current Medications: Active Medications Heparin Sodium (Porcine) (Heparin -) 5,000 unit SQ BID DARRION Last Admin: 06/05/19 21:07 Dose: 5,000 unit Piperacillin Sod/Tazobactam (Sod 3.375 gm/ Dextrose) 50 mls @ 100 mls/hr IVPB Q8H-IV DARRION; Protocol Last Admin: 06/05/19 18:33 Dose: 100 mls/hr Potassium Chloride/Dextrose/Sod Cl (D5-1/2ns+20 Meq Kcl -) 20 meq in 1,000 mls @ 42 mls/hr IV ASDIR DARRION Last Admin: 06/05/19 10:40 Dose: Not Given Morphine Sulfate (Morphine Sulfate) 2 mg IVPUSH Q6H PRN PRN Reason: PAIN LEVEL 2-8 Last Admin: 06/05/19 21:24 Dose: 2 mg Ondansetron HCl (Zofran Injection) 4 mg IVPUSH Q6H PRN PRN Reason: NAUSEA AND/OR VOMITING Last Admin: 06/04/19 22:47 Dose: 4 mg - Objective Vital Signs: Vital Signs Temperature 98.8 F 06/05/19 20:25 Pulse Rate 63 06/05/19 20:25 Respiratory Rate 18 06/05/19 20:25 Blood Pressure 136/76 06/05/19 20:25 O2 Sat by Pulse Oximetry (%) 100 06/05/19 09:00 Constitutional: Yes: Well Nourished Neck: Yes: WNL, Supple Cardiovascular: Yes: WNL, Regular Rate and Rhythm Respiratory: Yes: WNL, Regular, CTA Bilaterally Gastrointestinal: Yes: WNL, Normal Bowel Sounds, Soft Edema: No Labs: CBC, BMP 06/05/19 06:36 06/05/19 06:36 Problem List - Problems (1) SBO (small bowel obstruction) Assessment/Plan: CT scan abd/pelvis showed partial SBO and ?abdominal abscess Cont IV Zosyn NGT removed Repeat ct scan abd/pelvis to re-evaluate abdominal abscess? GI consult Code(s): K56.609 - UNSP INTESTNL OBST, UNSP TO PARTIAL VERSUS COMPLETE OBST (2) Asthma Assessment/Plan: Stable Duoneb prn Code(s): J45.909 - UNSPECIFIED ASTHMA, UNCOMPLICATED (3) GERD (gastroesophageal reflux disease) Assessment/Plan: Cont protonix Code(s): K21.9 - GASTRO-ESOPHAGEAL REFLUX DISEASE WITHOUT ESOPHAGITIS (4) Anemia Assessment/Plan: Due to chronic dz Code(s): D64.9 - ANEMIA, UNSPECIFIED (5) Nausea and vomiting Assessment/Plan: Resolved Due to SBO Code(s): R11.2 - NAUSEA WITH VOMITING, UNSPECIFIED (6) Crohn disease Assessment/Plan: Humira on hold Code(s): K50.90 - CROHN'S DISEASE, UNSPECIFIED, WITHOUT COMPLICATIONS (7) UTI (urinary tract infection) Assessment/Plan: Urine culture (+) for E coli Sensitive to zosyn Code(s): N39.0 - URINARY TRACT INFECTION, SITE NOT SPECIFIED
[2019-06-06] MEDS ORDERED: DEXTROSE 5%-WATER - 50 ML IVPB ONE ×3 (01:35→17:38)
[2019-06-06] MEDS ORDERED: PIPERACILLIN/TAZOBACTAM 3.375 GM VIAL IVPB ONE ×3 (01:35→17:38)
[2019-06-06] MEDS: PIPERACILLIN/TAZOB 3.375 GM 3.375 GM in DEXTROSE 5%-WATER - 50 ML IVPB SCH ×3 (02:08→17:39)
[2019-06-06] MEDS: MORPHINE SULFATE 2 MG/ML VIAL IVPUSH PRN ×3 (06:38→21:02)
[2019-06-06 07:38] LABS: BASO % 1.3 % (0-2.0); HEMATOCRIT 36.8 % (32.4-45.2); HEMOGLOBIN 12.5 GM/dL (10.7-15.3); LYMPH % 31.7 % (8-40); MCH 31.7 pg (25.7-33.7); MEAN CELL VOLUME 93.4 fl (80-96); MEAN PLT VOLUME 8.8 fl (7.5-11.1); MONO % 10.2 % (3.8-10.2); NEUT % 52.8 % (42.8-82.8); PLATELET COUNT 391 K/MM3 (134-434); RBC 3.94 M/mm3 (3.60-5.2); WHITE BLOOD COUNT 11.5 K/mm3 (4.0-10.0)
[2019-06-06 07:56] LABS: ALBUMIN 3.3 g/dl (3.4-5.0); BILIRUBIN,TOTAL 0.5 mg/dL (0.2-1); BLOOD UREA NITROGEN 3.4 mg/dL (7-18); CALCIUM 8.2 mg/dL (8.5-10.1); CREATININE 0.8 mg/dL (0.55-1.3); POTASSIUM 3.6 mmol/L (3.5-5.1); TOT PROT 6.7 g/dl (6.4-8.2)
--- NOTE | 2019-06-06 09:03 | CON.GI ---
Consult Consult Specialty:: GI Referred by:: Dr Ingrid Clay Reason for Consultation:: SBO - History of Present Illness Chief Complaint: SBO History of Present Illness: Patient is a 49 y/o female with past medical history of Crohn's Disease. Patient states that she was diagnosed with a UTI by PMD and was started on oral antibiotic therapy. While taking the antibiotics patient developed generalized abdominal discomfort accompanied with yellow colored vomitus and eventually non- bloody loose BM. Symptoms became progressively worse. Abd/Pelvic CT scan showed SBO secndary to stricture from association with Crohns Disease. Denies rectal bleeding, melena, or abnormal weight loss. - History Source History Provided By: Patient Limitations to Obtaining History: No Limitations - Past Medical History Pulmonary: Yes: Asthma Gastrointestinal: Yes: Crohn's Disease, GERD ...LMP: 05/01/19 ...: No - Past Surgical History Past Surgical History: Yes: None Additional Surgical History: b/l RC repair - Alcohol/Substance Use Hx Alcohol Use: No - Smoking History Smoking history: Current every day smoker Have you smoked in the past 12 months: No Aproximately how many cigarettes per day: 10 - Social History ADL: Independent History of Recent Travel: No Home Medications - Allergies Allergies/Adverse Reactions: Allergies Allergy/AdvReac Type Severity Reaction Status Date / Time metronidazole [From Flagyl] Allergy Mild Hives Verified 06/02/19 15:06 Metronidazole HCl Allergy Mild Hives Verified 06/02/19 15:06 [From Flagyl] shellfish derived Allergy Unknown Verified 06/02/19 15:06 latex Allergy Verified 06/02/19 15:06 pepper (genus Capsicum) Allergy Verified 06/02/19 15:06 Sulfa (Sulfonamide Allergy Rash, Verified 06/02/19 15:06 Antibiotics) ITCHY MOUTH - Home Medications Home Medications: Ambulatory Orders Adalimumab [Humira] 40 mg SQ ASDIR 05/09/15 Omeprazole 40 mg PO DAILY 05/09/15 Mirtazapine [Remeron -] 15 mg PO DAILY 06/13/15 Albuterol Sulfate Inhaler - [Ventolin HFA Inhaler -] 1 - 2 inh PO Q4H PRN Ipratropium Clyo 2 spray NS BID PRN #1 spray 08/21/18 Cyclobenzaprine HCl [Flexeril -] 10 mg PO TID PRN #10 tablet 08/24/18 Levofloxacin [Levaquin] 500 mg PO DAILY #7 tablet 12/31/18 Review of Systems - Review of Systems Constitutional: reports: No Symptoms Eyes: reports: No Symptoms HENT: reports: No Symptoms Neck: reports: No Symptoms Cardiovascular: reports: No Symptoms Respiratory: reports: No Symptoms Gastrointestinal: reports: Abdominal Pain, Nausea, Vomiting Genitourinary: reports: No Symptoms Breasts: reports: No Symptoms Reported Musculoskeletal: reports: No Symptoms Integumentary: reports: No Symptoms Neurological: reports: No Symptoms Endocrine: reports: No Symptoms Hematology/Lymphatic: reports: No Symptoms Psychiatric: reports: No Symptoms Physical Exam-GI Vital Signs: Vital Signs Temperature 98.2 F 06/06/19 06:00 Pulse Rate 60 06/06/19 06:00 Respiratory Rate 18 06/06/19 06:00 Blood Pressure 146/88 06/06/19 06:00 O2 Sat by Pulse Oximetry (%) 98 06/06/19 08:27 Constitutional: Yes: No Distress, Calm Eyes: Yes: Conjunctiva Clear HENT: Yes: Atraumatic Cardiovascular: Yes: Regular Rate and Rhythm Respiratory: Yes: Regular, CTA Bilaterally Gastrointestinal Inspection: Yes: WNL. No: Ascites, Distention, Hernia, Scars, Other ...Auscultate: Yes: Normoactive Bowel Sounds. No: Hyperactive Bowel Sounds, Hypoactive Bowel Sounds, No Bowel Sounds, Other ...Palpate: Yes: Tenderness (generalized) ...Percussion: Yes: Tympanitic. No: Dullness, Fluid Wave, Other Neurological: Yes: Alert, Oriented Psychiatric: Yes: Alert, Oriented Labs: CBC, BMP 06/06/19 06:40 06/06/19 06:40 Problem List - Problems (1) Crohn disease Assessment/Plan: -Continue Y[place] -low fiber diet Code(s): K50.90 - CROHN'S DISEASE, UNSPECIFIED, WITHOUT COMPLICATIONS (2) SBO (small bowel obstruction) Assessment/Plan: -Surgery on board -tolerating clear liquid diet Code(s): K56.609 - UNSP INTESTNL OBST, UNSP TO PARTIAL VERSUS COMPLETE OBST
[2019-06-06] MEDS: D5-1/2NS+20 MEQ KCL - 20 MEQ/1,000 ML INFUS.BAG IV SCH (09:19)
[2019-06-06] MEDS: HEPARIN NA (PORCINE) 5,000 UNITS/ML 1ML VIAL SQ SCH ×2 (09:20→21:02)
--- NOTE | 2019-06-06 11:49 | PN ---
Progress Note, Physician - Current Medication List Current Medications: Active Medications Heparin Sodium (Porcine) (Heparin -) 5,000 unit SQ BID DARRION Last Admin: 06/06/19 09:20 Dose: 5,000 unit Piperacillin Sod/Tazobactam (Sod 3.375 gm/ Dextrose) 50 mls @ 100 mls/hr IVPB Q8H-IV DARRION; Protocol Last Admin: 06/06/19 09:20 Dose: 100 mls/hr Potassium Chloride/Dextrose/Sod Cl (D5-1/2ns+20 Meq Kcl -) 20 meq in 1,000 mls @ 42 mls/hr IV ASDIR DARRION Last Admin: 06/06/19 09:19 Dose: 42 mls/hr Morphine Sulfate (Morphine Sulfate) 2 mg IVPUSH Q6H PRN PRN Reason: PAIN LEVEL 2-8 Last Admin: 06/06/19 06:38 Dose: 2 mg Ondansetron HCl (Zofran Injection) 4 mg IVPUSH Q6H PRN PRN Reason: NAUSEA AND/OR VOMITING Last Admin: 06/04/19 22:47 Dose: 4 mg - Objective Vital Signs: Vital Signs Temperature 98 F 06/06/19 09:36 Pulse Rate 70 06/06/19 09:36 Respiratory Rate 18 06/06/19 09:36 Blood Pressure 118/79 06/06/19 09:36 O2 Sat by Pulse Oximetry (%) 98 06/06/19 08:27 Labs: CBC, BMP 06/06/19 06:40 06/06/19 06:40
--- NOTE | 2019-06-06 20:32 | PN ---
Progress Note, Physician - Current Medication List Current Medications: Active Medications Heparin Sodium (Porcine) (Heparin -) 5,000 unit SQ BID DARRION Last Admin: 06/06/19 09:20 Dose: 5,000 unit Piperacillin Sod/Tazobactam (Sod 3.375 gm/ Dextrose) 50 mls @ 100 mls/hr IVPB Q8H-IV DARRION; Protocol Last Admin: 06/06/19 17:39 Dose: 100 mls/hr Potassium Chloride/Dextrose/Sod Cl (D5-1/2ns+20 Meq Kcl -) 20 meq in 1,000 mls @ 42 mls/hr IV ASDIR DARRION Last Admin: 06/06/19 09:19 Dose: 42 mls/hr Morphine Sulfate (Morphine Sulfate) 2 mg IVPUSH Q6H PRN PRN Reason: PAIN LEVEL 2-8 Last Admin: 06/06/19 13:35 Dose: 2 mg Ondansetron HCl (Zofran Injection) 4 mg IVPUSH Q6H PRN PRN Reason: NAUSEA AND/OR VOMITING Last Admin: 06/04/19 22:47 Dose: 4 mg - Objective Vital Signs: Vital Signs Temperature 98.7 F 06/06/19 19:37 Pulse Rate 66 06/06/19 19:37 Respiratory Rate 18 06/06/19 19:37 Blood Pressure 148/84 06/06/19 19:37 O2 Sat by Pulse Oximetry (%) 98 06/06/19 08:27 Labs: CBC, BMP 06/06/19 06:40 06/06/19 06:40 Problem List - Problems (1) SBO (small bowel obstruction) Code(s): K56.609 - UNSP INTESTNL OBST, UNSP TO PARTIAL VERSUS COMPLETE OBST (2) Asthma Code(s): J45.909 - UNSPECIFIED ASTHMA, UNCOMPLICATED (3) GERD (gastroesophageal reflux disease) Code(s): K21.9 - GASTRO-ESOPHAGEAL REFLUX DISEASE WITHOUT ESOPHAGITIS (4) Anemia Code(s): D64.9 - ANEMIA, UNSPECIFIED (5) Nausea and vomiting Code(s): R11.2 - NAUSEA WITH VOMITING, UNSPECIFIED (6) Crohn disease Code(s): K50.90 - CROHN'S DISEASE, UNSPECIFIED, WITHOUT COMPLICATIONS (7) UTI (urinary tract infection) Code(s): N39.0 - URINARY TRACT INFECTION, SITE NOT SPECIFIED
[2019-06-07] MEDS ORDERED: DEXTROSE 5%-WATER - 50 ML IVPB ONE ×2 (02:29→09:08)
[2019-06-07] MEDS ORDERED: PIPERACILLIN/TAZOBACTAM 3.375 GM VIAL IVPB ONE ×2 (02:29→09:07)
[2019-06-07] MEDS: PIPERACILLIN/TAZOB 3.375 GM 3.375 GM in DEXTROSE 5%-WATER - 50 ML IVPB SCH ×2 (02:45→09:13)
[2019-06-07] MEDS: MORPHINE SULFATE 2 MG/ML VIAL IVPUSH PRN ×2 (06:00→12:25)
[2019-06-07] MEDS: D5-1/2NS+20 MEQ KCL - 20 MEQ/1,000 ML INFUS.BAG IV SCH ×2 (06:00→09:14)
[2019-06-07 07:27] LABS: BASO % 0.8 % (0-2.0); HEMATOCRIT 35.8 % (32.4-45.2); HEMOGLOBIN 12.4 GM/dL (10.7-15.3); LYMPH % 34.5 % (8-40); MCH 32.1 pg (25.7-33.7); MCHC 34.7 g/dl (32.0-36.0); MEAN CELL VOLUME 92.5 fl (80-96); MEAN PLT VOLUME 8.5 fl (7.5-11.1); MONO % 13.9 % (3.8-10.2); NEUT % 44.8 % (42.8-82.8); PLATELET COUNT 376 K/MM3 (134-434); RBC 3.87 M/mm3 (3.60-5.2); RDW 13.7 % (11.6-15.6); WHITE BLOOD COUNT 9.8 K/mm3 (4.0-10.0)
[2019-06-07 07:46] LABS: ALBUMIN 3.2 g/dl (3.4-5.0); BILIRUBIN,TOTAL 0.5 mg/dL (0.2-1); BLOOD UREA NITROGEN 4.9 mg/dL (7-18); CALCIUM 8.4 mg/dL (8.5-10.1); CREATININE 0.8 mg/dL (0.55-1.3); POTASSIUM 3.5 mmol/L (3.5-5.1); TOT PROT 6.5 g/dl (6.4-8.2)
[2019-06-07] MEDS: HEPARIN NA (PORCINE) 5,000 UNITS/ML 1ML VIAL SQ SCH (09:14)
[2019-06-07] MEDS ORDERED: FLUCONAZOLE 100 MG TABLET (UD) PO ONE (10:45)
--- NOTE | 2019-06-07 11:30 | PN ---
Progress Note, Physician History of Present Illness: patient stable no new issues - Current Medication List Current Medications: Active Medications Heparin Sodium (Porcine) (Heparin -) 5,000 unit SQ BID DARRION Last Admin: 06/07/19 09:14 Dose: 5,000 unit Piperacillin Sod/Tazobactam (Sod 3.375 gm/ Dextrose) 50 mls @ 100 mls/hr IVPB Q8H-IV DARRION; Protocol Last Admin: 06/07/19 09:13 Dose: 100 mls/hr Potassium Chloride/Dextrose/Sod Cl (D5-1/2ns+20 Meq Kcl -) 20 meq in 1,000 mls @ 42 mls/hr IV ASDIR DARRION Last Admin: 06/07/19 09:14 Dose: Not Given Morphine Sulfate (Morphine Sulfate) 2 mg IVPUSH Q6H PRN PRN Reason: PAIN LEVEL 2-8 Last Admin: 06/07/19 06:00 Dose: 2 mg Ondansetron HCl (Zofran Injection) 4 mg IVPUSH Q6H PRN PRN Reason: NAUSEA AND/OR VOMITING Last Admin: 06/04/19 22:47 Dose: 4 mg - Objective Vital Signs: Vital Signs Temperature 98.7 F 06/07/19 10:00 Pulse Rate 68 06/07/19 10:00 Respiratory Rate 18 06/07/19 10:00 Blood Pressure 122/91 06/07/19 10:00 O2 Sat by Pulse Oximetry (%) 98 06/06/19 21:00 Constitutional: Yes: No Distress, Calm Cardiovascular: Yes: S1, S2 Respiratory: Yes: Regular, CTA Bilaterally Gastrointestinal: Yes: Normal Bowel Sounds, Soft Musculoskeletal: Yes: WNL Extremities: Yes: WNL Neurological: Yes: Alert, Oriented Psychiatric: Yes: Alert, Oriented Labs: CBC, BMP 06/07/19 06:30 06/07/19 06:30 Assessment/Plan Problem List - Problems (1) SBO (small bowel obstruction) Code(s): K56.609 - UNSP INTESTNL OBST, UNSP TO PARTIAL VERSUS COMPLETE OBST (2) Crohn's colitis Code(s): K50.10 - CROHN'S DISEASE OF LARGE INTESTINE WITHOUT COMPLICATIONS Qualifiers: Digestive disease complication type: unspecified complication Qualified Code(s): K50.119 - Crohn's disease of large intestine with unspecified complications (3) Diarrhea Code(s): R19.7 - DIARRHEA, UNSPECIFIED Qualifiers: Diarrhea type: unspecified type Qualified Code(s): R19.7 - Diarrhea, unspecified (4) Nausea and vomiting Code(s): R11.2 - NAUSEA WITH VOMITING, UNSPECIFIED Assessment/Plan SBO Crohn's Disease - on Humira Leukocytosis continue current mgmt wbc normal can change to oral abx when ready to discharge rest as per the team
[2019-06-07 14:27] VITALS: BP 148/90; PULSE 65; TEMP 98.2
== END 2019-06-07 15:20 | disposition home or self-care (01) | DRG 245 ==
LOC: JER 14:57 → JERBED 23:13 → J7W 06-03 10:40
PROVIDERS: ADMIT Internal Medicine; ATTEND Internal Medicine
DX: K50.012 Crohn's disease of small intestine with intestinal obstruction (principal); F17.210 Nicotine dependence, cigarettes, uncomplicated; R19.7 Diarrhea, unspecified; R11.2 Nausea with vomiting, unspecified; D72.829 Elevated white blood cell count, unspecified; F32.9 Major depressive disorder, single episode, unspecified; N39.0 Urinary tract infection, site not specified; J45.909 Unspecified asthma, uncomplicated; K21.9 Gastro-esophageal reflux disease without esophagitis; D64.9 Anemia, unspecified; R10.9 Unspecified abdominal pain; K76.0 Fatty (change of) liver, not elsewhere classified; K65.1 Peritoneal abscess
CPT/HCPCS: 36415; 71045-TC-FY; 74021-TC-FY; 74177-TC; 80053; 81003; 83690; 83735; 84702; 84703; 85025; 87086; 87186; 93971; 99285-25; J0131; J1644; J7030; Q9967

== ENCOUNTER 2020-08-16 11:59 | Inpatient (IN) | payer OTHER ==
[2020-08-16] MEDS ORDERED: ONDANSETRON 4 MG/2 ML VIAL IVPUSH ONE ×2 (12:59→19:46)
[2020-08-16] MEDS ORDERED: ACETAMINOPHEN 1000 MG/100 ML VIAL (NON FORMULARY) IVPB ONE (12:59)
[2020-08-16] MEDS ORDERED: LACTATED RINGERS SOLUTION 1000 ML INFUS.BAG IV ONE ×2 (12:59→20:00)
[2020-08-16] MEDS ORDERED: ACETAMINOPHEN INJECTION 100 ML IVPB ONE (13:10)
[2020-08-16] MEDS ORDERED: ONDANSETRON 4 MG/2 ML VIAL ONE ×2 (13:10→20:55)
[2020-08-16] MEDS ORDERED: MECLIZINE HCL 25 MG TABLET (FP) PO ONE (13:26)
[2020-08-16 13:45] LABS: BASO % 1.6 % (0-2.0); EOS % 0.9 % (0-4.5); HEMATOCRIT 43.6 % (32.4-45.2); HEMOGLOBIN 14.3 GM/dL (10.7-15.3); LYMPH % 12.9 % (8-40); MCH 30.9 pg (25.7-33.7); MCHC 32.9 g/dl (32.0-36.0); MEAN CELL VOLUME 94.1 fl (80-96); MEAN PLT VOLUME 8.2 fl (7.5-11.1); MONO % 5.6 % (3.8-10.2); PLATELET COUNT 433 K/MM3 (134-434); RBC 4.63 M/mm3 (3.60-5.2); RDW 14.7 % (11.6-15.6); WHITE BLOOD COUNT 13.1 K/mm3 (4.0-10.0)
[2020-08-16 14:03] LABS: CHLORIDE 106 mmol/L (98-107); POTASSIUM 4.1 mmol/L (3.5-5.1); SODIUM 140 mmol/L (136-145)
[2020-08-16 14:05] LABS: ANION GAP 5 MMOL/L (8-16); CALCIUM 9.3 mg/dL (8.5-10.1); CO2 29 mmol/L (21-32)
[2020-08-16 14:06] LABS: BLOOD UREA NITROGEN 8.1 mg/dL (7-18); GLUCOSE,RANDOM 99 mg/dL (74-106)
[2020-08-16 14:08] LABS: SGPT/ALT 29 U/L (13-61)
[2020-08-16 14:09] LABS: CREATININE 0.7 mg/dL (0.55-1.3); SGOT/AST 20 U/L (15-37)
[2020-08-16 14:10] LABS: BILIRUBIN,TOTAL 0.5 mg/dL (0.2-1); TOT PROT 8.2 g/dl (6.4-8.2)
[2020-08-16 14:11] LABS: ALK PHOS 122 U/L (45-117)
[2020-08-16 14:14] LABS: HCG,QUALITATIVE URINE Negative
[2020-08-16 14:39] LABS: PH,URINE 7.5 (5.0-8.0); URINE APPEARANCE CLEAR; URINE BILIRUBIN NEGATIVE (NEGATIVE); URINE COLOR YELLOW; URINE GLUCOSE (UA) NEGATIVE (NEGATIVE); URINE KETONE NEGATIVE (NEGATIVE); URINE LEUK ESTERASE NEGATIVE (NEGATIVE); URINE NITRITE NEGATIVE (NEGATIVE); URINE PROTEIN NEGATIVE (NEGATIVE); URINE UROBILINOGEN 0.2 mg/dL (0.2-1.0)
[2020-08-16] MEDS ORDERED: morphine CARPU-JECT 4 MG/1 ML DISP.SYRIN IVPUSH ONE ×2 (15:13→19:42)
[2020-08-16] MEDS ORDERED: morphine SULFATE 4 MG/ML VIAL ONE ×2 (15:31→20:54)
[2020-08-16] MEDS ORDERED: METOCLOPRAMIDE HCL INJECTION 10 MG/2 ML VIAL IVPUSH ONE (17:41)
[2020-08-16] MEDS ORDERED: METOCLOPRAMIDE HCL INJECTION 10 MG/2 ML VIAL ONE (20:55)
[2020-08-17] MEDS ORDERED: ONDANSETRON 4 MG/2 ML VIAL IVPUSH PRN (00:12)
[2020-08-17] MEDS ORDERED: DEXTROSE 5%-0.45% SALINE 1,000 ML IV SCH (00:15)
[2020-08-17] MEDS ORDERED: ONDANSETRON 4 MG/2 ML VIAL ONE (00:26)
[2020-08-17 05:05] VITALS: BMI 26.1
[2020-08-17] MEDS: MORPHINE SULFATE 2 MG/ML VIAL IVPUSH PRN ×3 (08:22→21:41)
[2020-08-17 08:24] LABS: BASO % 0.9 % (0-2.0); EOS % 3.8 % (0-4.5); HEMOGLOBIN 13.3 GM/dL (10.7-15.3); LYMPH % 21.5 % (8-40); MCH 31.9 pg (25.7-33.7); MCHC 34.1 g/dl (32.0-36.0); MEAN CELL VOLUME 93.7 fl (80-96); MEAN PLT VOLUME 8.4 fl (7.5-11.1); MONO % 8.9 % (3.8-10.2); NEUT % 64.9 % (42.8-82.8); PLATELET COUNT 395 K/MM3 (134-434); RBC 4.16 M/mm3 (3.60-5.2); RDW 14.4 % (11.6-15.6); WHITE BLOOD COUNT 13.1 K/mm3 (4.0-10.0)
[2020-08-17 08:29] LABS: POTASSIUM 3.7 mmol/L (3.5-5.1)
[2020-08-17 08:35] LABS: ALBUMIN 3.4 g/dl (3.4-5.0); BLOOD UREA NITROGEN 7.3 mg/dL (7-18); CALCIUM 8.7 mg/dL (8.5-10.1)
[2020-08-17 08:39] LABS: CREATININE 0.7 mg/dL (0.55-1.3)
[2020-08-17 08:40] LABS: BILIRUBIN,TOTAL 0.7 mg/dL (0.2-1)
[2020-08-17] MEDS: ENOXAPARIN NA (PORCINE) 40 MG/0.4 ML DISP.SYRIN SQ SCH (09:13)
[2020-08-17] MEDS: DEXTROSE 5%-0.45% SALINE 1,000 ML IV SCH ×2 (13:15→21:21)
[2020-08-17] MEDS: POLYETHYLENE GLYCOL 3350 119 GM BTL PO SCH ×2 (14:16→21:19)
[2020-08-17] MEDS: PANTOPRAZOLE 40 MG TABLET PO SCH (18:42)
[2020-08-17] MEDS: MIRTAZAPINE 15 MG TABLET (FP) PO SCH (21:19)
[2020-08-18] MEDS: POLYETHYLENE GLYCOL 3350 119 GM BTL PO SCH ×3 (05:38→21:09)
[2020-08-18] MEDS: MORPHINE SULFATE 2 MG/ML VIAL IVPUSH PRN ×3 (08:43→21:09)
[2020-08-18 08:52] LABS: BASO % 0.7 % (0-2.0); EOS % 4.3 % (0-4.5); HEMATOCRIT 38.7 % (32.4-45.2); HEMOGLOBIN 13.4 GM/dL (10.7-15.3); LYMPH % 41.9 % (8-40); MCH 32.2 pg (25.7-33.7); MCHC 34.6 g/dl (32.0-36.0); MEAN PLT VOLUME 8.5 fl (7.5-11.1); MONO % 8.8 % (3.8-10.2); NEUT % 44.3 % (42.8-82.8); PLATELET COUNT 394 K/MM3 (134-434); RBC 4.16 M/mm3 (3.60-5.2); RDW 13.7 % (11.6-15.6)
[2020-08-18] MEDS: ENOXAPARIN NA (PORCINE) 40 MG/0.4 ML DISP.SYRIN SQ SCH (09:00)
[2020-08-18] MEDS: PANTOPRAZOLE 40 MG TABLET PO SCH (09:00)
[2020-08-18 09:04] LABS: POTASSIUM 3.7 mmol/L (3.5-5.1)
[2020-08-18 09:08] LABS: ALBUMIN 3.4 g/dl (3.4-5.0); BLOOD UREA NITROGEN 4.9 mg/dL (7-18); CALCIUM 8.6 mg/dL (8.5-10.1)
[2020-08-18 09:10] LABS: CREATININE 0.8 mg/dL (0.55-1.3)
[2020-08-18 09:13] LABS: BILIRUBIN,TOTAL 0.5 mg/dL (0.2-1)
[2020-08-18] MEDS: DEXTROSE 5%-0.45% SALINE 1,000 ML IV SCH (13:09)
[2020-08-18] MEDS: MIRTAZAPINE 15 MG TABLET (FP) PO SCH (21:09)
[2020-08-19] MEDS: POLYETHYLENE GLYCOL 3350 119 GM BTL PO SCH ×3 (06:11→22:07)
[2020-08-19] MEDS: PANTOPRAZOLE 40 MG TABLET PO SCH (09:26)
[2020-08-19] MEDS: ENOXAPARIN NA (PORCINE) 40 MG/0.4 ML DISP.SYRIN SQ SCH (09:26)
[2020-08-19] MEDS: MORPHINE SULFATE 2 MG/ML VIAL IVPUSH PRN ×2 (10:51→18:09)
[2020-08-19] MEDS: DEXTROSE 5%-0.45% SALINE 1,000 ML IV SCH (14:58)
[2020-08-19] MEDS: MIRTAZAPINE 15 MG TABLET (FP) PO SCH (22:05)
[2020-08-20] MEDS: MORPHINE SULFATE 2 MG/ML VIAL IVPUSH PRN (00:24)
[2020-08-20 02:38] VITALS: PULSE 57
[2020-08-20] MEDS: POLYETHYLENE GLYCOL 3350 119 GM BTL PO SCH (07:02)
[2020-08-20 07:37] VITALS: BP 121/70; TEMP 99.6
[2020-08-20] MEDS: ENOXAPARIN NA (PORCINE) 40 MG/0.4 ML DISP.SYRIN SQ SCH (09:33)
[2020-08-20] MEDS: PANTOPRAZOLE 40 MG TABLET PO SCH (09:33)
[2020-08-20 10:07] LABS: HEP B CORE AB, TOT Negative (Negative)
[2020-08-21 16:08] LABS: ATYPICAL pANCA <1:20 titer (Neg:<1:20); C-ANCA <1:20 titer (Neg:<1:20)
== END 2020-08-20 13:20 | disposition home or self-care (01) | DRG 245 ==
LOC: JER 11:59 → JERBED 19:46 → J6S 08-17 02:24
PROVIDERS: ADMIT Internal Medicine; ATTEND Internal Medicine
DX: K50.112 Crohn's disease of large intestine with intestinal obstruction (principal); K21.9 Gastro-esophageal reflux disease without esophagitis; J45.909 Unspecified asthma, uncomplicated; F32.9 Major depressive disorder, single episode, unspecified; R10.33 Periumbilical pain; K56.41 Fecal impaction; E78.5 Hyperlipidemia, unspecified; K56.699 Other intestinal obstruction unspecified as to partial versus complete obstruction; K76.0 Fatty (change of) liver, not elsewhere classified; D64.9 Anemia, unspecified
CPT/HCPCS: 36415; 71045-TC-FY; 74021-TC-FY; 74177-TC; 80053; 81003; 82550; 82553; 82728; 83516; 83520; 83540; 83550; 84484; 84703; 85025; 86038; 86140; 86256; 86671; 86704; 86706; 86707; 86708; 86709; 86803; 87086; 87340; 93005; 93010; 99285-25; C9803; J0131; Q9967; U0003

== ENCOUNTER 2023-04-05 06:00 | Day surgery (SDC) | payer OTHER ==
[2023-04-02 10:06] VITALS: BMI 26.6
[2023-04-05 07:15] VITALS: RESP 16
[2023-04-05] MEDS ORDERED: ceFAZolin 2 GRAM PREMIX BAG IVPB ONE (10:00)
[2023-04-05] MEDS ORDERED: LIDOCAINE 1% P/F 10 MG/ML VIAL PNB ONE (10:02)
[2023-04-05] MEDS ORDERED: IOHEXOL 180 MG/1 ML ML IJ ONE (10:02)
[2023-04-05] MEDS ORDERED: DEXAMETHASONE SOD PHOSPHATE 10 MG/1 ML VIAL IVPUSH ONE (10:03)
[2023-04-05] MEDS ORDERED: BUPIVACAINE HCL/PF 0.5% (5MG/ML) 10 ML VIAL IJ ONE (10:03)
[2023-04-05 10:34] VITALS: TEMP 98
[2023-04-05 11:53] VITALS: BP 130/74; PULSE 72
== END 2023-04-05 11:45 | disposition home or self-care (01) ==
LOC: JASU-SURG 06:00
PROVIDERS: ATTEND Physical Medicine & Rehabilitation
PROC: 3E0R3BZ Introduction of Anesthetic Agent into Spinal Canal, Percutaneous Approach (ICD-10-PCS; 2023-04-05)
PROC: 3E0R33Z Introduction of Anti-inflammatory into Spinal Canal, Percutaneous Approach (ICD-10-PCS; principal; 2023-04-05 09:00)
DX: M54.16 Radiculopathy, lumbar region (principal)
CPT/HCPCS: 76000-TC-FY; J1100

== ENCOUNTER 2023-06-28 04:20 | Day surgery (SDC) | payer OTHER ==
[2023-06-24 10:48] VITALS: BMI 28.3
[2023-06-28] MEDS ORDERED: FENTANYL CITRATE/PF 50 MCG/ML VIAL ONE (12:18)
[2023-06-28] MEDS ORDERED: MIDAZOLAM HCL 2 MG/2 ML SINGLE DOSE VIAL ONE (12:19)
[2023-06-28] MEDS ORDERED: BUPIVACAINE HCL 0.25% 125 MG/50 ML VIAL NR ONE (12:26)
[2023-06-28] MEDS ORDERED: DEXAMETHASONE SOD PHOSPHATE 10 MG/1 ML VIAL IVPUSH ONE (12:26)
[2023-06-28] MEDS ORDERED: LIDOCAINE 1% P/F 10 MG/ML VIAL INF ONE (12:26)
[2023-06-28] MEDS ORDERED: IOHEXOL 180 MG/1 ML ML IJ ONE (12:26)
[2023-06-28 14:30] VITALS: BP 123/77; PULSE 64; RESP 16; TEMP 98.6
== END 2023-06-28 14:34 | disposition home or self-care (01) ==
LOC: JASU-SURG 04:20
PROVIDERS: ATTEND Physical Medicine & Rehabilitation
PROC: 3E0R3BZ Introduction of Anesthetic Agent into Spinal Canal, Percutaneous Approach (ICD-10-PCS; 2023-06-28)
PROC: 3E0R33Z Introduction of Anti-inflammatory into Spinal Canal, Percutaneous Approach (ICD-10-PCS; principal; 2023-06-28 13:00)
DX: M54.16 Radiculopathy, lumbar region (principal); M54.50 Low back pain, unspecified
CPT/HCPCS: 76000-TC-FY; J1100

== ENCOUNTER 2023-12-21 10:06 | Emergency (ER) | payer OTHER ==
[2023-12-21 10:20] VITALS: BP 141/87; PULSE 79; RESP 18; TEMP 98.1; BMI 30.7
[2023-12-21] MEDS ORDERED: ACETAMINOPHEN 500 MG TABLET (FP) ONE (11:25)
[2023-12-21] MEDS: ACETAMINOPHEN 500 MG TABLET (FP) PO ONE (11:28)
== END 2023-12-21 12:39 | disposition home or self-care (01) ==
LOC: JER 10:06
DX: S66.911A Strain of unspecified muscle, fascia and tendon at wrist and hand level, right hand, initial encounter (principal); X50.0XXA Overexertion from strenuous movement or load, initial encounter
CPT/HCPCS: 73110-TC-RT-FY; 99283-25